=== PATIENT | male | born 1960 | race Caucasian/White ===

== ENCOUNTER 2018-12-01 08:55 | Day surgery (SDC) | payer OTHER ==
[~2018-12-01] VITALS: Ht 182.9 cm; Wt 142.9 kg
[~2018-12-01 08:55] MED LIST: ACTEMRA162 MG/0.9 SC; ADAL40PEN; AMOX875 PO; Amox Tr-K Clv1 EAC2 PO; CEPH500 PO; CHOL10002 PO; Depo-Testos200 MG/ML IM; FURO20 PO; Glucophage1000 MG PO; HYDACE10B; HYDCHL12.5 PO; HYDCHL25 PO; HYDHOMSY; HYDR1TAB94 PO; LEFL20 PO; LISHYD2025; METF500C PO; NAPR500 PO; Norco 7.5-3251 EACH PO; PRED10; PRED5 PO; Percocet 5-3251 EACH PO; TAMS.4ER PO; TESTONE CI200 MG/1 M IM; Veetids 500500 MG PO; XARELTO10 MG PO; ZESTORETIC 20-251 EA PO
--- NOTE | 2018-12-01 10:20 | NUR ---
History, Chart, Medications and Allergies reviewed before start of procedure. Lungs clear T/O to Auscultation. Patient confirms NPO status and agrees with scheduled surgery. Patient States Post-Procedure ride home has been arranged. Patient reports completing Chlorhexadine shower X2 prior to admission to hospital.
--- NOTE | 2018-12-01 11:45 | NUR ---
12/01/18 1145 Colin Nye ANCEF 3GMS ADMINESTERED AT 1108 IVPB, LEFT FOREARM, DR DEWITT
--- NOTE | 2018-12-01 13:36 | NUR ---
Discharge instructions reviewed with patient. Patient verbalizes understanding. Copy given to patient to take home. REPORT GIVEN TO JOE BAKER Y
--- NOTE | 2018-12-01 14:13 | NUR ---
Patient up to Ambulate independently. Gait steady. USES WALKER TO MOVE FROM SITTING AT EDGE OF GURNEY TO STANDING, KEEPS R LEG STRAIGHT. BEARS WT. TRANSFERS TO . OUT TO WAITING CAR. DOES NOT USE BACK SEAT OF VEHICLE FOR RIDE HOME ENCOURAGED BY RN AND FAMILY. ASSISTED TO STAND AND MOVE TO PASSENGER FRONT SEAT. Discharge instructions reviewed with patient. Patient verbalizes understanding. Copy given to patient to take home. Patient States Post-Procedure ride home has been arranged. Discharged via wheelchair to private car for ride home.
== END 2018-12-01 23:59 | disposition home or self-care (01) ==
LOC: ORSCMMR 08:55 → ORD 10:45 → ORSCMMR 23:59
PROVIDERS: Orthopaedic Surgery
PROC: 0LMQ0ZZ Reattachment of Right Knee Tendon, Open Approach (ICD-10-PCS; principal; 2018-12-01 10:45)
DX: T81.32XA Disruption of internal operation (surgical) wound, not elsewhere classified, initial encounter (principal); Z96.651 Presence of right artificial knee joint; I10 Essential (primary) hypertension; G47.33 Obstructive sleep apnea (adult) (pediatric); K21.9 Gastro-esophageal reflux disease without esophagitis; E11.9 Type 2 diabetes mellitus without complications; E66.01 Morbid (severe) obesity due to excess calories; Z68.41 Body mass index [BMI] 40.0-44.9, adult; Z79.4 Long term (current) use of insulin; Z79.899 Other long term (current) drug therapy
CPT/HCPCS: 82947; 87071; 87075; 87205; J0690; J2250; J2710; J3010; J7120

== ENCOUNTER → 2019-05-30 | Outpatient (CLI) | payer OTHER ==
[2019-05-30 09:21] LABS: BASOPHILS PERCENT AUTO 0 % (0-2); EOSINOPHILS ABSOLUTE AUTO 0.63 K/mm3 (0.00-0.68); EOSINOPHILS PERCENT AUTO 3 % (0-6); Hematocrit 42.2 % (37.0-53.0); Hemoglobin 14.5 g/dL (13.5-17.5); IMMATURE GRAN ABSOLUTE AUTO 0.12 K/mm3 (0.00-0.10); IMMATURE GRAN PERCENT AUTO 1 % (0-1); LYMPHOCYTES ABSOLUTE AUTO 1.67 K/mm3 (0.84-5.20); LYMPHOCYTES PERCENT AUTO 7 % (21-46); MONOCYTES ABSOLUTE AUTO 1.86 K/mm3 (0.16-1.47); MONOCYTES PERCENT AUTO 8 % (4-13); Mean Corpuscular HGB 32.2 pg (26.0-34.0); Mean Corpuscular HGB Conc 34.4 g/dL (31.5-36.5); Mean Corpuscular Volume 94 fL (80-100); NEUTROPHILS ABSOLUTE AUTO 19.47 K/mm3 (1.96-9.15); NEUTROPHILS PERCENT AUTO 82 % (41-73); Platelet Count 150 K/mm3 (150-400); RDW Coefficient Variation 14.1 % (11.7-14.2); RDW Standard Deviation 47.9 fL (35.1-46.3); White Blood Cell Count 23.85 K/mm3 (4.00-11.30)
[2019-05-30 09:37] LABS: Albumin, Blood 3.3 g/dL (3.4-5.0); Albumin/Globulin Ratio 1.2 (0.8-1.8); Bilirubin, Total 1.1 mg/dL (0.1-1.0); Bun/Creatinine Ratio 32.3 (12.0-20.0); Calcium, Blood 8.8 mg/dL (8.5-10.1); Creatinine, Blood 1.86 mg/dL (0.60-1.20); Globulin, Blood 2.8 g/dL (2.2-4.0); Potassium, Blood 4.1 mmol/L (3.5-5.5); Total Protein, Blood 6.1 g/dL (6.4-8.2)
[2019-05-30 11:16] LABS: Mean Platelet Volume 13.3 fL (9.1-12.4)
[2019-05-30 11:23] LABS: BAND PERCENT MAN 2 % (0-8); BASOPHILS ABSOLUTE MAN 0.23 K/mm3 (0.00-0.23); BASOPHILS PERCENT MAN 1 % (0-2); EOSINOPHILS ABSOLUTE MAN 0.71 K/mm3 (0.00-0.68); EOSINOPHILS PERCENT MAN 3 % (0-6); LYMPHOCYTES PERCENT MAN 8 % (21-46); MONOCYTES ABSOLUTE MAN 1.43 K/mm3 (0.16-1.47); MONOCYTES PERCENT MAN 6 % (4-13); NEUTROPHILS ABSOLUTE MAN 19.55 K/mm3 (1.96-9.15); SEG NEUTROPHILS PERCENT MAN 80 % (41-73); TOTAL CELLS COUNTED 100
== END | disposition home or self-care (01) ==
LOC: LAB EV 09:16 → LAB SHORT 09:16
PROVIDERS: Physician Assistant
DX: R19.7 Diarrhea, unspecified (principal)
CPT/HCPCS: 80053; 85025

== ENCOUNTER → 2019-05-31 | Outpatient (CLI) | payer OTHER ==
[2019-05-31 09:44] LABS: BASOPHILS ABSOLUTE AUTO 0.11 K/mm3 (0.00-0.23); BASOPHILS PERCENT AUTO 1 % (0-2); EOSINOPHILS ABSOLUTE AUTO 1.15 K/mm3 (0.00-0.68); EOSINOPHILS PERCENT AUTO 9 % (0-6); Hematocrit 41.5 % (37.0-53.0); Hemoglobin 14.2 g/dL (13.5-17.5); IMMATURE GRAN ABSOLUTE AUTO 0.04 K/mm3 (0.00-0.10); IMMATURE GRAN PERCENT AUTO 0 % (0-1); LYMPHOCYTES ABSOLUTE AUTO 1.31 K/mm3 (0.84-5.20); LYMPHOCYTES PERCENT AUTO 10 % (21-46); MONOCYTES ABSOLUTE AUTO 1.12 K/mm3 (0.16-1.47); MONOCYTES PERCENT AUTO 9 % (4-13); Mean Corpuscular HGB 32.2 pg (26.0-34.0); Mean Corpuscular HGB Conc 34.2 g/dL (31.5-36.5); Mean Corpuscular Volume 94 fL (80-100); NEUTROPHILS ABSOLUTE AUTO 9.25 K/mm3 (1.96-9.15); NEUTROPHILS PERCENT AUTO 71 % (41-73); Platelet Count 140 K/mm3 (150-400); RDW Coefficient Variation 13.6 % (11.7-14.2); RDW Standard Deviation 47.3 fL (35.1-46.3); Red Blood Cell Count 4.41 M/mm3 (4.30-5.90); White Blood Cell Count 12.98 K/mm3 (4.00-11.30)
[2019-05-31 09:45] LABS: Alanine Aminotransfer (ALT/SGP 39 U/L (12-78); Albumin, Blood 3.4 g/dL (3.4-5.0); Albumin/Globulin Ratio 1.1 (0.8-1.8); Alk Phos 76 U/L (40-126); Anion Gap 11 mmol/L (6-16); Aspartate Aminotrans (AST/SGOT 19 U/L (12-37); Bilirubin, Total 0.6 mg/dL (0.1-1.0); Blood Urea Nitrogen 30 mg/dL (8-24); Bun/Creatinine Ratio 26.5 (12.0-20.0); CO2, Blood 24 mmol/L (21-32); Calcium, Blood 9.1 mg/dL (8.5-10.1); Chloride, Blood 104 mmol/L (98-108); Creatinine, Blood 1.13 mg/dL (0.60-1.20); Glomerular Filtration Rate >60 (60-); Glucose, Blood 108 mg/dL (70-99); Potassium, Blood 4.1 mmol/L (3.5-5.5); Sodium, Blood 139 mmol/L (136-145); Total Protein, Blood 6.4 g/dL (6.4-8.2)
[2019-05-31 09:51] LABS: Mean Platelet Volume 13.8 fL (9.1-12.4)
== END | disposition home or self-care (01) ==
LOC: LAB SHORT 09:30 → LAB EV 09:30
PROVIDERS: Physician Assistant
DX: N17.9 Acute kidney failure, unspecified (principal)
CPT/HCPCS: 80053; 85025

== ENCOUNTER → 2019-06-14 | Outpatient (CLI) | payer OTHER | END | disposition home or self-care (01) | LOC: LAB SHORT 11:13 → LAB EV 11:13 | DX: G89.4 Chronic pain syndrome (principal) | CPT/HCPCS: G0480 ==

== ENCOUNTER → 2021-01-20 | Outpatient (CLI) | payer OTHER | END | disposition home or self-care (01) | LOC: LAB 09:10 → LAB SHORT 09:10 | DX: L57.0 Actinic keratosis (principal) | CPT/HCPCS: 88305; 88312 ==

== ENCOUNTER 2024-05-25 02:45 | Day surgery (SDC) | payer OTHER ==
[2024-05-25] MEDS ORDERED: NS IV SCH (06:00)
[2024-05-25] MEDS ORDERED: TOCILIZUMAB IV SCH (06:00)
[2024-05-25 09:33] VITALS: BP 135/82
[2024-05-25] MEDS ORDERED: Tocilizumab 800 MG in NS 60 ML IV SCH (09:55)
== END 2024-05-25 11:34 | disposition home or self-care (01) ==
LOC: ATC 02:45
DX: M05.79 Rheumatoid arthritis with rheumatoid factor of multiple sites without organ or systems involvement (principal); I12.9 Hypertensive chronic kidney disease with stage 1 through stage 4 chronic kidney disease, or unspecified chronic kidney disease; E11.22 Type 2 diabetes mellitus with diabetic chronic kidney disease; N18.30 Chronic kidney disease, stage 3 unspecified; E78.5 Hyperlipidemia, unspecified; Z88.1 Allergy status to other antibiotic agents; Z79.84 Long term (current) use of oral hypoglycemic drugs; Z79.899 Other long term (current) drug therapy
CPT/HCPCS: 96365; 96366; J3262

== ENCOUNTER 2024-07-26 00:54 | Day surgery (SDC) | payer OTHER ==
[2024-07-26 08:00] VITALS: BP 153/82
[2024-07-26] MEDS ORDERED: Tocilizumab 800 MG in NS 60 ML IV SCH (08:15)
== END 2024-07-26 09:24 | disposition home or self-care (01) ==
LOC: ATC 00:54
DX: M05.79 Rheumatoid arthritis with rheumatoid factor of multiple sites without organ or systems involvement (principal); E11.9 Type 2 diabetes mellitus without complications; E11.22 Type 2 diabetes mellitus with diabetic chronic kidney disease; I12.9 Hypertensive chronic kidney disease with stage 1 through stage 4 chronic kidney disease, or unspecified chronic kidney disease; N18.30 Chronic kidney disease, stage 3 unspecified; Z79.84 Long term (current) use of oral hypoglycemic drugs; Z79.899 Other long term (current) drug therapy; Z88.8 Allergy status to other drugs, medicaments and biological substances
CPT/HCPCS: 96365; J3262

== ENCOUNTER 2024-08-23 04:45 | Day surgery (SDC) | payer OTHER ==
[2024-08-23] MEDS ORDERED: Tocilizumab 800 MG in NS 60 ML IV SCH (06:00)
[2024-08-23 08:18] VITALS: BP 170/100
[2024-08-23 08:59] LABS: BASOPHILS ABSOLUTE AUTO 0.19 K/mm3 (0.00-0.23); BASOPHILS PERCENT AUTO 2 % (0-2); EOSINOPHILS ABSOLUTE AUTO 0.92 K/mm3 (0.00-0.68); EOSINOPHILS PERCENT AUTO 10 % (0-6); Hematocrit 48.8 % (37.0-53.0); Hemoglobin 16.5 g/dL (13.5-17.5); IMMATURE GRAN ABSOLUTE AUTO 0.04 K/mm3 (0.00-0.10); IMMATURE GRAN PERCENT AUTO 0 % (0-1); LYMPHOCYTES ABSOLUTE AUTO 1.68 K/mm3 (0.84-5.20); LYMPHOCYTES PERCENT AUTO 17 % (21-46); MONOCYTES ABSOLUTE AUTO 0.99 K/mm3 (0.16-1.47); MONOCYTES PERCENT AUTO 10 % (4-13); Mean Corpuscular HGB 31.1 pg (26.0-34.0); Mean Corpuscular HGB Conc 33.8 g/dL (31.5-36.5); Mean Corpuscular Volume 92 fL (80-100); NEUTROPHILS ABSOLUTE AUTO 5.85 K/mm3 (1.96-9.15); NEUTROPHILS PERCENT AUTO 61 % (41-73); Platelet Count 177 K/mm3 (150-400); RDW Coefficient Variation 13.2 % (11.7-14.2); RDW Standard Deviation 45.6 fL (35.1-46.3); Red Blood Cell Count 5.31 M/mm3 (4.30-5.90); White Blood Cell Count 9.67 K/mm3 (4.00-11.30)
[2024-08-23 09:20] LABS: Mean Platelet Volume 13.6 fL (9.1-12.4)
[2024-08-23 09:22] LABS: C-REACTIVE PROTEIN, EXT RANGE <0.290 mg/dL (0.000-0.300)
[2024-08-23 09:23] LABS: Alanine Aminotransfer (ALT/SGP 65 U/L (12-78); Albumin, Blood 3.4 g/dL (3.4-5.0); Albumin/Globulin Ratio 1.2 (0.8-1.8); Alk Phos 70 U/L (50-136); Anion Gap 6 mmol/L (3-11); Aspartate Aminotrans (AST/SGOT 34 U/L (12-37); Blood Urea Nitrogen 26 mg/dL (8-24); Bun/Creatinine Ratio 31.4 (12.0-20.0); CO2, Blood 27 mmol/L (21-32); Chloride, Blood 109 mmol/L (98-108); Creatinine, Blood 0.83 mg/dL (0.60-1.20); Globulin, Blood 2.9 g/dL (2.2-4.0); Glomerular Filtration Rate 97 (60-); Glucose, Blood 109 mg/dL (70-99); Potassium, Blood 4.1 mmol/L (3.5-5.5); Sodium, Blood 138 mmol/L (136-145); Total Protein, Blood 6.3 g/dL (6.4-8.2)
== END 2024-08-23 10:00 | disposition home or self-care (01) ==
LOC: ATC 04:45
PROVIDERS: Internal Medicine Rheumatology
DX: M05.79 Rheumatoid arthritis with rheumatoid factor of multiple sites without organ or systems involvement (principal); I12.9 Hypertensive chronic kidney disease with stage 1 through stage 4 chronic kidney disease, or unspecified chronic kidney disease; E11.22 Type 2 diabetes mellitus with diabetic chronic kidney disease; N18.30 Chronic kidney disease, stage 3 unspecified; E78.5 Hyperlipidemia, unspecified; N40.0 Benign prostatic hyperplasia without lower urinary tract symptoms; G89.4 Chronic pain syndrome; F17.220 Nicotine dependence, chewing tobacco, uncomplicated; Z79.1 Long term (current) use of non-steroidal anti-inflammatories (NSAID); Z79.84 Long term (current) use of oral hypoglycemic drugs; Z79.899 Other long term (current) drug therapy; Z88.1 Allergy status to other antibiotic agents
CPT/HCPCS: 80053; 85025; 86140; 96365; J3262

== ENCOUNTER → 2024-09-04 | Outpatient (CLI) | payer OTHER ==
[~2024-09-04] MED LIST changes: +ACTEMRA162 MG/0.1 SC; -ACTEMRA162 MG/0.9 SC
[2024-09-05 17:42] LABS: COTININE, URN, SCREEN Negative ng/mL (Cutoff 100)
== END | disposition home or self-care (01) ==
LOC: LAB 11:34 → LAB SHORT 11:34
PROVIDERS: Orthopaedic Surgery
DX: Z01.812 Encounter for preprocedural laboratory examination (principal); Z87.891 Personal history of nicotine dependence

== ENCOUNTER 2024-10-17 04:09 | Day surgery (SDC) | payer OTHER ==
[~2024-10-17 04:09] MED LIST changes: +DEPO-TESTO200 MG/1 M IM; -Depo-Testos200 MG/ML IM; +HYDACE10B PO
[2024-10-17] MEDS ORDERED: Tocilizumab 800 MG in NS 60 ML IV SCH (06:00)
[2024-10-17 08:00] VITALS: BP 159/95
== END 2024-10-17 09:34 | disposition home or self-care (01) ==
LOC: ATC 04:09
DX: M05.79 Rheumatoid arthritis with rheumatoid factor of multiple sites without organ or systems involvement (principal); M17.12 Unilateral primary osteoarthritis, left knee; E11.9 Type 2 diabetes mellitus without complications; Z88.8 Allergy status to other drugs, medicaments and biological substances; Z79.899 Other long term (current) drug therapy
CPT/HCPCS: 96365; J3262

== ENCOUNTER 2024-10-28 08:09 | Inpatient (IN) | payer OTHER ==
[~2024-10-28] VITALS: Ht 180.3 cm; Wt 133.1 kg
[2024-10-28 10:02] LABS: BASOPHILS ABSOLUTE AUTO 0.21 K/mm3 (0.00-0.23); BASOPHILS PERCENT AUTO 1 % (0-2); EOSINOPHILS ABSOLUTE AUTO 0.37 K/mm3 (0.00-0.68); EOSINOPHILS PERCENT AUTO 1 % (0-6); Hematocrit 45.2 % (37.0-53.0); Hemoglobin 14.9 g/dL (13.5-17.5); IMMATURE GRAN ABSOLUTE AUTO 0.25 K/mm3 (0.00-0.10); IMMATURE GRAN PERCENT AUTO 1 % (0-1); LYMPHOCYTES ABSOLUTE AUTO 0.64 K/mm3 (0.84-5.20); LYMPHOCYTES PERCENT AUTO 2 % (21-46); MONOCYTES ABSOLUTE AUTO 1.56 K/mm3 (0.16-1.47); MONOCYTES PERCENT AUTO 5 % (4-13); Mean Corpuscular Volume 94 fL (80-100); Mean Platelet Volume 12.8 fL (9.1-12.4); NEUTROPHILS ABSOLUTE AUTO 27.27 K/mm3 (1.96-9.15); NEUTROPHILS PERCENT AUTO 90 % (41-73); Platelet Count 204 K/mm3 (150-400); RDW Coefficient Variation 13.3 % (11.7-14.2); RDW Standard Deviation 45.7 fL (35.1-46.3)
[2024-10-28 10:13] LABS: C-REACTIVE PROTEIN, EXT RANGE 7.24 mg/dL (0.000-0.300)
[2024-10-28 10:14] LABS: Albumin, Blood 3.5 g/dL (3.4-5.0); Albumin/Globulin Ratio 1.1 (0.8-1.8); Bilirubin, Total 0.9 mg/dL (0.1-1.0); Bun/Creatinine Ratio 22.8 (12.0-20.0); Calcium, Blood 9.4 mg/dL (8.5-10.1); Creatinine, Blood 1.23 mg/dL (0.60-1.20); Globulin, Blood 3.2 g/dL (2.2-4.0); Potassium, Blood 4.2 mmol/L (3.5-5.5); Total Protein, Blood 6.7 g/dL (6.4-8.2)
[2024-10-28] MEDS ORDERED: Ketorolac Tromethamine 15mg Vial IV ONE (11:45)
[2024-10-28] MEDS ORDERED: NS 1,000 ML IV SCH (11:50)
[2024-10-28] MEDS ORDERED: Cefepime HCl 2,000 MG in NS 100 ML IV ONE (12:40)
[2024-10-28] MEDS ORDERED: Vancomycin HCL 2,500 MG in NS 500 ML IV ONE ×2 (12:45→14:35)
[2024-10-28] MEDS ORDERED: Piperacillin/Tazobactam Sod 3.375 GM in NS 100 ML IV ONE (14:10)
[2024-10-28] MEDS ORDERED: TraZODone HCl 50 MG Tab PO PRN (14:20)
[2024-10-28] MEDS ORDERED: Bisacodyl 10 MG Supp PR PRN (14:20)
[2024-10-28] MEDS ORDERED: OxyCODONE HCL 5 MG TAB PO PRN (14:25)
[2024-10-28] MEDS ORDERED: Magnesium Hydroxide Conc 10 ML UDC PO PRN (14:25)
[2024-10-28] MEDS ORDERED: Ondansetron HCl 2 MG / ML 2ML Vial IV PRN (14:25)
[2024-10-28] MEDS ORDERED: HYDROmorphone HCl/Pf 1MG SYR IV PRN (14:25)
[2024-10-28] MEDS ORDERED: Acetaminophen 325 MG TABLET PO PRN (14:25)
[2024-10-28] MEDS ORDERED: Ondansetron 4 MG TAB PO PRN (14:25)
[2024-10-28] MEDS ORDERED: Metoclopramide HCl 5MG / ML 2ML Vial IV PRN (14:25)
[2024-10-28] MEDS ORDERED: FLU VACC TS2024-25(6MOS UP)/PF 45 MCG/0.5 ML SYRINGE IM SCH (14:30)
[2024-10-28] MEDS ORDERED: Piperacillin/Tazobactam Sod 4.5 GM in NS 100 ML IV SCH (16:00)
[2024-10-28 16:37] LABS: BODY FLUID RBC 0.043 M/mm3 (0-0)
[2024-10-28 16:47] LABS: RBC Count, Synovial Fluid 43000 /mm3 (0-0); WBC Count, Synovial Fluid >200000 /mm3 (0-180)
[2024-10-28 16:48] LABS: Appearance, Synovial Fluid Turbid (Clear); Color, Synovial Fluid Dark Yellow (None-P Yel)
[2024-10-28 16:51] VITALS: BP 115/69
[2024-10-28] MEDS ORDERED: NAPR500 PO (16:57)
[2024-10-28] MEDS ORDERED: Diflucan150 MG PO (16:57)
[2024-10-28 17:36] LABS: Lymphs, Synovial Fluid 1 % (0-15); Monocytes/Macrophages, Synovia 5 % (0-65); Neutrophils, Synovial Fluid 94 % (0-24)
--- NOTE | 2024-10-28 18:24 | NUR ---
SHIFT SUMMARY/ARRIVAL TO UNIT AFTER RECEIVING REPORT FROM ED RN, PATIENT TRANSFERRED TO UNIT AT APPROX 1645. PATIENT ALERT AND ORIENTED X4. COMMUNICATES NEEDS EFFECTIVELY. ABLE TO STAND AND TRANSFER FROM ED GURNEY TO BED WITH 1P ASSIST. VSS. ON ROOM AIR, SATs >90%. RR EVEN, UNLABORED. MILD SHORTNESS OF BREATH WITH MOBILITY. NPO AT MIDNIGHT FOR LLE PROCEDURE. REDNESS FROM FOOT EXTENDING TO CALF. +3 SWELLING. WARM TO TOUCH. PPP FAINT/THREADY. SMALL BANDAID IN PLACE FROM BEDSIDE ARTHROCENTESIS PRIOR TO ARRIVAL. MEDICATED PER EMAR FOR PAIN WITH REPORTED RELIEF. IV ABX INFUSING PER EMAR. CALL LIGHT IN REACH. AT BEDSIDE. WILL CONTINUE TO MONITOR AND REPORT TO ONCOMING RN.
[2024-10-28 20:33] VITALS: BP 135/77
[2024-10-28] MEDS ORDERED: NS 250 ML IV PRN (20:55)
[2024-10-28] MEDS ORDERED: Insulin Human Lispro 100 Units/ML 3ML Syringe SC SCH (21:00)
[2024-10-29] VITALS (21 sets, daily range): BP systolic 86–138; BP diastolic 52–91
--- NOTE | 2024-10-29 05:12 | NUR ---
SHIFT SUMMARY PT ABLE TO SLEEP DURING THE NIGHT. PAIN MANAGED PER EMAR. PT MADE NPO AT [place] FOR SURGERY THIS AM. PT HAS EDEMA TO LLE, PULSES STRONG TO LE'S. VSS. NO OTHER CONCERNS AT THIS TIME, CALL LIGHT WITHIN REACH
[2024-10-29] MEDS ORDERED: CeFAZolin Sodium 2,000 MG in NS 100 ML IV SCH (06:00)
[2024-10-29] MEDS ORDERED: Ropivacaine 0.5% HCl/Pf 123.125 MG,EPINEPHrine HCL 0.25 MG,Ketorolac Tromethamine 15 MG... INFIL SCH (06:00)
[2024-10-29] MEDS ORDERED: Vancomycin HCL 1,000 MG in NS 250 ML IV SCH ×2 (06:00→21:00)
[2024-10-29] MEDS ORDERED: Tranexamic Acid 1,000 MG in NS 100 ML IV SCH (06:00)
[2024-10-29] MEDS ORDERED: Insulin Human Lispro 100 Units/ML 3ML Syringe SC SCH ×2 (06:00→21:00)
[2024-10-29 06:15] LABS: BASOPHILS ABSOLUTE AUTO 0.19 K/mm3 (0.00-0.23); BASOPHILS PERCENT AUTO 1 % (0-2); EOSINOPHILS PERCENT AUTO 6 % (0-6); Hematocrit 39.5 % (37.0-53.0); Hemoglobin 12.9 g/dL (13.5-17.5); IMMATURE GRAN ABSOLUTE AUTO 0.19 K/mm3 (0.00-0.10); IMMATURE GRAN PERCENT AUTO 1 % (0-1); LYMPHOCYTES ABSOLUTE AUTO 0.85 K/mm3 (0.84-5.20); LYMPHOCYTES PERCENT AUTO 4 % (21-46); MONOCYTES ABSOLUTE AUTO 1.57 K/mm3 (0.16-1.47); MONOCYTES PERCENT AUTO 7 % (4-13); Mean Corpuscular HGB 31.1 pg (26.0-34.0); Mean Corpuscular HGB Conc 32.7 g/dL (31.5-36.5); Mean Corpuscular Volume 95 fL (80-100); Mean Platelet Volume 12.9 fL (9.1-12.4); NEUTROPHILS PERCENT AUTO 82 % (41-73); Platelet Count 163 K/mm3 (150-400); RDW Coefficient Variation 13.6 % (11.7-14.2); RDW Standard Deviation 47.6 fL (35.1-46.3); Red Blood Cell Count 4.15 M/mm3 (4.30-5.90)
[2024-10-29 06:56] LABS: Albumin, Blood 2.8 g/dL (3.4-5.0); Bilirubin, Total 0.9 mg/dL (0.1-1.0); Bun/Creatinine Ratio 32.2 (12.0-20.0); Creatinine, Blood 0.99 mg/dL (0.60-1.20); Globulin, Blood 2.9 g/dL (2.2-4.0); Total Protein, Blood 5.7 g/dL (6.4-8.2)
[2024-10-29] MEDS ORDERED: Lactated Ringer's 1,000 ML IV ONE (08:41)
[2024-10-29] MEDS ORDERED: Bupivacaine 0.5% HCl 5 MG/ML 30MLVIAL ONE (08:47)
[2024-10-29] MEDS ORDERED: Vancomycin HCl 1000 MG ADDvantage ONE (08:47)
[2024-10-29] MEDS ORDERED: Tranexamic Acid 100 ML IV ONE (08:47)
[2024-10-29] MEDS ORDERED: HydroCHLOROthiazide 25 mg Tab PO SCH (09:00)
[2024-10-29] MEDS ORDERED: Heparin Sodium 5000 Units/ML 1ML MDV SC SCH (09:00)
[2024-10-29] MEDS ORDERED: Lisinopril 20 MG Tab PO SCH (09:00)
[2024-10-29] MEDS ORDERED: Tamsulosin HCl 0.4 MG Cap PO SCH (09:00)
[2024-10-29] MEDS ORDERED: propofoL 20 ML IV ONE (09:27)
--- NOTE | 2024-10-29 09:27 | NUR ---
PT ARRIVES TO PACU VIA BED FROM RM 227 AT 0915 FOR PREOP CARE. PLEASANT & COOPERATIVE. DENIES PAIN/NAUSEA. AFEBRILE/VSS. SURGICAL PACK COMPLETE. LR AT TKO INFUSING. SURGICAL HAT/PAS SLEEVE TO RLE/BP CUFF PLACED. NO COMPLANTS.
[2024-10-29] MEDS ORDERED: FentaNYL Citrate 50 MCG/ML 2 ML Injection ONE ×2 (09:28→09:53)
--- NOTE | 2024-10-29 09:31 | NUR ---
PT TO OR 4 VIA BED AT 0930 IN STABLE CONDITION.
[2024-10-29] MEDS ORDERED: Phenylephrine HCl 10mg/ml 1 ml Vial ONE (09:35)
[2024-10-29] MEDS ORDERED: Ondansetron HCl 2 MG / ML 2ML Vial ONE (09:39)
[2024-10-29] MEDS ORDERED: Dexamethasone Sod Phos 10 MG/ML 1ML VIAL ONE (09:39)
[2024-10-29] MEDS ORDERED: HYDROmorphone HCl/Pf 1MG SYR ONE ×2 (12:08→12:45)
[2024-10-29] MEDS ORDERED: Ipratropium/Albuterol SulF 2.5-0.5MG/3 ML Amp ONE (12:17)
[2024-10-29] MEDS ORDERED: Naloxone HCl 0.4MG / ML 1ML Vial IV PRN (12:30)
[2024-10-29] MEDS ORDERED: OxyCODONE HCL 5 MG TAB PO PRN (12:30)
[2024-10-29] MEDS ORDERED: Bisacodyl 10 MG Supp PR PRN (12:30)
[2024-10-29] MEDS ORDERED: Ondansetron 4 MG TAB PO PRN (12:30)
[2024-10-29] MEDS ORDERED: Acetaminophen 325 MG TABLET PO PRN (12:30)
[2024-10-29] MEDS ORDERED: Ondansetron HCl 2 MG / ML 2ML Vial IV PRN (12:30)
[2024-10-29] MEDS ORDERED: HYDROmorphone HCl/Pf 1MG SYR IV PRN (12:35)
[2024-10-29] MEDS ORDERED: Metoclopramide HCl 10 MG Tab PO PRN (12:35)
[2024-10-29] MEDS ORDERED: NS KCl 20mEq 1,000 ML IV SCH (12:35)
[2024-10-29] MEDS ORDERED: Magnesium Hydroxide Conc 10 ML UDC PO PRN (12:35)
[2024-10-29] MEDS ORDERED: Ketorolac Tromethamine 15mg Vial IV PRN (12:45)
--- NOTE | 2024-10-29 16:48 | NUR ---
spoke with dr. maurer about low blood pressures. orders to give 500 ml bolus and dc any antihypertensive meds at this time. if bp does not improve call dr. maurer back.
[2024-10-29] MEDS ORDERED: NS 500 ML IV ONE (16:55)
[2024-10-29] MEDS ORDERED: CeFAZolin Sodium 3,000 MG in NS 100 ML IV SCH (17:30)
--- NOTE | 2024-10-29 19:40 | NUR ---
SHIFT SUMMARY POD0 L KNEE I&D WITH HARDWARE REMOVAL, A/OX4, VSS, TOLERATING PO, PAIN MANAGED, NWB LLE AND HE HAS NOT TRIED TO GET UP SINCE SURGERY. HEMOVAC IN PLACE WITH 60ML DRAINED THIS SHIFT. PT WAS VERY PAINFUL WHEN HE CAME OUT FROM PACU, GAVE PO AND IV TORADOL DUE TO IV NARCOTICS BEING GIVEN SO RECENTLY IN PACU. WAITED ABOUT 45 MINUTES AND HE WAS STILL REPORTING HIGH PAIN LEVELS. AT THAT TIME HE WAS DOWN TO RA WITH SATS > 96%. GAVE 1MG DILAUDID PER EMAR AND HE HAD BECAME DROWSY AFTER ABOUT 10-15 MINUTES BUT WOKE EASILY WITH THE AMBIENT NOISE IN THE ROOM AND FAMILY ASKING QUESTIONS. BP BECAME SOFT WITH ELEVATED HR WHICH WAS DISCUSSED WITH MD (SEE NURSE NOTES). SMALL BOLUS ORDERED AND GIVEN PER EMAR, PT BP REMAINS SOFT BUT RESPONSIVE, REPORTING PAIN AGAIN AND ASKING FOR MORE PAIN MEDS WHEN DOING BEDSIDE SHIFT REPORT. CALL LIGHT IN REACH.
--- NOTE | 2024-10-29 19:46 | NUR ---
FAMILY COMMUNICATION FAMILY, AND DAUGHTER, REQUESTED FOR SURGEON TO CALL AND UPDATE THEM ON PATIENTS CARE IF THEY ARE NOT HERE WHEN THE SURGEON ROUNDS. NAMED YAEL HEARN, DAUGHTER RAJESH.
[2024-10-29] MEDS ORDERED: Docusate Sodium 100 MG Cap PO SCH (21:00)
[2024-10-30 03:41] VITALS: BP 101/56
[2024-10-30 05:32] LABS: BASOPHILS ABSOLUTE AUTO 0.04 K/mm3 (0.00-0.23); BASOPHILS PERCENT AUTO 0 % (0-2); EOSINOPHILS PERCENT AUTO 0 % (0-6); Hematocrit 33.9 % (37.0-53.0); Hemoglobin 11.2 g/dL (13.5-17.5); IMMATURE GRAN ABSOLUTE AUTO 0.45 K/mm3 (0.00-0.10); IMMATURE GRAN PERCENT AUTO 2 % (0-1); LYMPHOCYTES ABSOLUTE AUTO 0.56 K/mm3 (0.84-5.20); LYMPHOCYTES PERCENT AUTO 3 % (21-46); MONOCYTES PERCENT AUTO 7 % (4-13); Mean Corpuscular HGB 31.8 pg (26.0-34.0); Mean Corpuscular Volume 96 fL (80-100); Mean Platelet Volume 12.5 fL (9.1-12.4); NEUTROPHILS ABSOLUTE AUTO 19.47 K/mm3 (1.96-9.15); NEUTROPHILS PERCENT AUTO 89 % (41-73); Platelet Count 150 K/mm3 (150-400); RDW Coefficient Variation 13.8 % (11.7-14.2); RDW Standard Deviation 48.6 fL (35.1-46.3); Red Blood Cell Count 3.52 M/mm3 (4.30-5.90); White Blood Cell Count 22.02 K/mm3 (4.00-11.30)
--- NOTE | 2024-10-30 06:07 | NUR ---
POD 1 S/P LEFT I&D/HARDWARE REMOVAL. PT VSS T/O NIGHT. DRESSING CDI. HEMOVAC INTACT W/200ML DARK SS DRNG. PAIN MGD PER EMAR W/REP RELIEF. PT AMADA REG PO, DENIED N/V, IS VOIDING URINE W/O DIFFICULTY. PT ASSISTED W/REPOSITIONING PRN, KNEE IMMOBILIZER IN PLACE. IV ABX CONT PER ORDERS.
[2024-10-30 06:18] LABS: Bun/Creatinine Ratio 24.2 (12.0-20.0); C-REACTIVE PROTEIN, EXT RANGE 5.81 mg/dL (0.000-0.300); Calcium, Blood 8.6 mg/dL (8.5-10.1); Creatinine, Blood 1.28 mg/dL (0.60-1.20); Magnesium, Blood 2.2 mg/dL (1.6-2.4); Potassium, Blood 3.8 mmol/L (3.5-5.5)
[2024-10-30 07:20] VITALS: BP 132/67
[2024-10-30] MEDS ORDERED: Enoxaparin 40 MG/0.4 ML SYR SC SCH (09:00)
--- NOTE | 2024-10-30 12:48 | NUR ---
DR BENNETT IN TO SEE PT.
--- NOTE | 2024-10-30 14:16 | NUR ---
HEMOVAC HEMOVAC CLIP CAME OFF AND HEMOVAC FELL OFF TUBING AND LANDED ON FLOOR. CLAMPED TUBING AND PLACED END OF TUBING IN BAG TO KEEP CLEAN. NOTIFIED DR BENNETT. CLEANED TUBING WITH ALCOHOL AND PLACED NEW HEMOVAC PER DR MILLER'S INSTRUCTION. HEMOVAC COMPRESSED.
[2024-10-30 15:57] VITALS: BP 138/71
--- NOTE | 2024-10-30 17:26 | NUR ---
summary NO ACUTE CHANGES T/O SHIFT. PT PAINFUL OFF AND ON T/O DAY, MEDICATED PER ORDERS FOR PAIN. GOT UP TO RECLINER WITH THERAPY AND BSC W/RN & PEELED POTATO INSPECTOR. TWO PERSON ASSIST. IMMOBILIZER IN PLACE, HEMOVAC COMPRESSED. FAMILY BEDSIDE. CALL LIGHT IN REACH.
[2024-10-30 19:22] VITALS: BP 134/72
[2024-10-30] MEDS ORDERED: Baclofen 10 MG Tab PO PRN (20:35)
[2024-10-30 20:51] LABS: Vancomycin, Trough 10.2 ug/mL (5.0-10.0)
[2024-10-30] MEDS ORDERED: Vancomycin HCL 1,750 MG in NS 500 ML IV SCH (22:00)
[2024-10-30 23:59] VITALS: BP 143/79
--- NOTE | 2024-10-31 01:04 | NUR ---
PHARMACIST SAMUEL REVIEWED PT LABS AND MEDS,HE CONFIRMED OK TO GIVE TORADOL.
[2024-10-31 03:59] VITALS: BP 150/76
[2024-10-31 04:22] LABS: BASOPHILS ABSOLUTE AUTO 0.19 K/mm3 (0.00-0.23); BASOPHILS PERCENT AUTO 1 % (0-2); EOSINOPHILS ABSOLUTE AUTO 0.31 K/mm3 (0.00-0.68); EOSINOPHILS PERCENT AUTO 2 % (0-6); Hematocrit 37.9 % (37.0-53.0); Hemoglobin 12.1 g/dL (13.5-17.5); IMMATURE GRAN PERCENT AUTO 1 % (0-1); LYMPHOCYTES ABSOLUTE AUTO 1.52 K/mm3 (0.84-5.20); LYMPHOCYTES PERCENT AUTO 9 % (21-46); MONOCYTES ABSOLUTE AUTO 1.45 K/mm3 (0.16-1.47); MONOCYTES PERCENT AUTO 9 % (4-13); Mean Corpuscular HGB 30.8 pg (26.0-34.0); Mean Corpuscular HGB Conc 31.9 g/dL (31.5-36.5); Mean Corpuscular Volume 96 fL (80-100); Mean Platelet Volume 12.5 fL (9.1-12.4); NEUTROPHILS PERCENT AUTO 79 % (41-73); Platelet Count 171 K/mm3 (150-400); RDW Coefficient Variation 13.7 % (11.7-14.2); RDW Standard Deviation 48.6 fL (35.1-46.3); Red Blood Cell Count 3.93 M/mm3 (4.30-5.90); White Blood Cell Count 16.77 K/mm3 (4.00-11.30)
[2024-10-31 04:45] LABS: Albumin, Blood 2.6 g/dL (3.4-5.0); Albumin/Globulin Ratio 0.9 (0.8-1.8); Bilirubin, Total 0.4 mg/dL (0.1-1.0); Bun/Creatinine Ratio 27.4 (12.0-20.0); Calcium, Blood 8.9 mg/dL (8.5-10.1); Creatinine, Blood 0.99 mg/dL (0.60-1.20); Potassium, Blood 4.1 mmol/L (3.5-5.5); Total Protein, Blood 5.6 g/dL (6.4-8.2)
[2024-10-31 07:33] VITALS: BP 147/81
--- NOTE | 2024-10-31 07:44 | NUR ---
SUMMARY PT AWAKE AND ORIENTED. PT REPORTED MUSCLE SPASMS TONIGHT ANAD I OBTAINED ORDER FOR BACLOFEN WHICH WAS GIVEN X1.THIS AM DURING SHIFT REPORT, PT VERB PLEASED WITH BACLOFEN AND FELT IT WAS QUITE HELPFUL.
[2024-10-31] MEDS ORDERED: MetFORMIN HCl 500 mg PO SCH (08:00)
[2024-10-31] MEDS ORDERED: HydroCHLOROthiazide 25 mg Tab PO SCH (09:00)
[2024-10-31 16:05] VITALS: BP 105/78
--- NOTE | 2024-10-31 16:18 | NUR ---
STEPHANIE ARMSTRONG IN TO SEE PT.
--- NOTE | 2024-10-31 17:47 | NUR ---
SUMMARY NO ACUTE CHANGES T/O SHIFT. PT GOT UP TO RECLINER THIS AM. DOES NOT LIKE RECLINER. EDUCATED PT AND FAMILY ON IMPORTANCE FOR OVERALL HEALTH TO BE OUT OF BED. PT STATES WOULD RATHER SIT ON EDGE OF BED. DRESSING TO LLE CDI. EMPTIED 100 ML FROM HEMOVAC. COMPRESSED. REC'G IV ABX PER ORDERS. MEDICATED PER ORDERS DURING SHIFT FOR PAIN AND SPASMS. PT GOT UP TO BSC TWICE TODAY, HAVING SOFT, UNFORMED BMS. RESTING IN BED AT THIS TIME, CALL LIGHT IN REACH.
[2024-10-31 19:44] VITALS: BP 147/77
[2024-10-31] MEDS ORDERED: Arginine/Glutamine/Calcium Hmb 1 Packet PO SCH (21:00)
[2024-11-01 05:01] VITALS: BP 154/89
[2024-11-01 05:44] LABS: BASOPHILS ABSOLUTE AUTO 0.17 K/mm3 (0.00-0.23); BASOPHILS PERCENT AUTO 2 % (0-2); EOSINOPHILS ABSOLUTE AUTO 0.93 K/mm3 (0.00-0.68); EOSINOPHILS PERCENT AUTO 8 % (0-6); Hematocrit 37.1 % (37.0-53.0); IMMATURE GRAN ABSOLUTE AUTO 0.08 K/mm3 (0.00-0.10); IMMATURE GRAN PERCENT AUTO 1 % (0-1); LYMPHOCYTES ABSOLUTE AUTO 1.78 K/mm3 (0.84-5.20); LYMPHOCYTES PERCENT AUTO 16 % (21-46); MONOCYTES ABSOLUTE AUTO 1.56 K/mm3 (0.16-1.47); MONOCYTES PERCENT AUTO 14 % (4-13); Mean Corpuscular HGB 30.8 pg (26.0-34.0); Mean Corpuscular HGB Conc 32.3 g/dL (31.5-36.5); Mean Corpuscular Volume 95 fL (80-100); Mean Platelet Volume 12.6 fL (9.1-12.4); NEUTROPHILS ABSOLUTE AUTO 6.55 K/mm3 (1.96-9.15); NEUTROPHILS PERCENT AUTO 59 % (41-73); Platelet Count 181 K/mm3 (150-400); RDW Coefficient Variation 13.5 % (11.7-14.2); RDW Standard Deviation 47.3 fL (35.1-46.3); Red Blood Cell Count 3.89 M/mm3 (4.30-5.90); White Blood Cell Count 11.07 K/mm3 (4.00-11.30)
[2024-11-01 06:20] LABS: Albumin, Blood 2.4 g/dL (3.4-5.0); Albumin/Globulin Ratio 0.8 (0.8-1.8); Bilirubin, Total 0.4 mg/dL (0.1-1.0); Bun/Creatinine Ratio 29.4 (12.0-20.0); Calcium, Blood 8.9 mg/dL (8.5-10.1); Creatinine, Blood 0.82 mg/dL (0.60-1.20); Globulin, Blood 2.9 g/dL (2.2-4.0); Potassium, Blood 3.9 mmol/L (3.5-5.5); Total Protein, Blood 5.3 g/dL (6.4-8.2)
[2024-11-01 07:31] VITALS: BP 152/73
--- NOTE | 2024-11-01 07:38 | NUR ---
SHIFT SUMMARY NOC. PT POD 3 FOR I&D AND HARDWARE REMOVAL. PT A/O X4. PT NWB ON LLE, IMMOBILIZER AND HEMOVAC IN PLACE. PT MEDICATED FOR PAIN WITH REPORTED RELIEF. PT VOIDING URINE AND TOLERATING PO INTAKE. MAKES NEEDS KNOWN, CALL LIGHT IN REACH.
[2024-11-01 14:08] VITALS: BP 145/68
--- NOTE | 2024-11-01 16:35 | NUR ---
SUMMARY: PT IS POD3 L I&D. A/O, VSS. SURGICAL SITE WNL, BRACE IN PLACE. SMALL AMT OF OUTPUT FROM HEMOVAC. PT MEDICATED FOR PAIN/SPASMS PER EMAR. PT REFUSED THERAPY TODAY, DID SIT AT EDGE OF BED TONIGHT FOR BEDBATH. NO ACUTE CHANGE, PLAN IS NPO AT 0000. PER DR. MO OK TO PLACE PICC LINE TOMORROW. PT USES CALL LIGHT AND MAKES NEEDS KNOWN.
--- NOTE | 2024-11-01 18:52 | NUR ---
DR. BENNETT IN ROOM AT ABOUT 1800.
[2024-11-01 19:29] VITALS: BP 154/82
[2024-11-02] VITALS (15 sets, daily range): BP systolic 99–168; BP diastolic 49–88
--- NOTE | 2024-11-02 04:37 | NUR ---
SHIFT SUMMARY POD 4 L KNEE I&D AND HARDWARE REMOVAL PT ABLE TO REST DURING THE NIGHT. PAIN MANAGED PER EMAR. PT CURRENTLY ON CL, WILL BECOME NPO AT NOON FOR SURGERY TODAY. [place] AND IMMOBILIZER TO L KNEE IS C/D/I. HEMO VAC HAS MINIMAL SS OUTPUT. VSS. NO OTHER CONCERNS AT THIS TIME, CALL LIGHT WITHIN REACH
[2024-11-02 05:03] LABS: BASOPHILS ABSOLUTE AUTO 0.14 K/mm3 (0.00-0.23); BASOPHILS PERCENT AUTO 1 % (0-2); EOSINOPHILS ABSOLUTE AUTO 0.92 K/mm3 (0.00-0.68); EOSINOPHILS PERCENT AUTO 9 % (0-6); Hemoglobin 12.4 g/dL (13.5-17.5); IMMATURE GRAN ABSOLUTE AUTO 0.11 K/mm3 (0.00-0.10); IMMATURE GRAN PERCENT AUTO 1 % (0-1); LYMPHOCYTES ABSOLUTE AUTO 1.57 K/mm3 (0.84-5.20); LYMPHOCYTES PERCENT AUTO 15 % (21-46); MONOCYTES PERCENT AUTO 11 % (4-13); Mean Corpuscular HGB 30.7 pg (26.0-34.0); Mean Corpuscular HGB Conc 32.6 g/dL (31.5-36.5); Mean Corpuscular Volume 94 fL (80-100); Mean Platelet Volume 12.5 fL (9.1-12.4); NEUTROPHILS ABSOLUTE AUTO 6.72 K/mm3 (1.96-9.15); NEUTROPHILS PERCENT AUTO 63 % (41-73); Platelet Count 180 K/mm3 (150-400); RDW Coefficient Variation 13.2 % (11.7-14.2); RDW Standard Deviation 45.9 fL (35.1-46.3); Red Blood Cell Count 4.04 M/mm3 (4.30-5.90); White Blood Cell Count 10.66 K/mm3 (4.00-11.30)
[2024-11-02 05:25] LABS: Albumin, Blood 2.5 g/dL (3.4-5.0); Albumin/Globulin Ratio 0.9 (0.8-1.8); Bilirubin, Total 0.4 mg/dL (0.1-1.0); Bun/Creatinine Ratio 30.3 (12.0-20.0); Calcium, Blood 9.3 mg/dL (8.5-10.1); Creatinine, Blood 0.79 mg/dL (0.60-1.20); Globulin, Blood 2.9 g/dL (2.2-4.0); Potassium, Blood 4.3 mmol/L (3.5-5.5); Total Protein, Blood 5.4 g/dL (6.4-8.2)
[2024-11-02] MEDS ORDERED: Lactobacil 2-S.Thermo-Bifido 1 1 Cap PO SCH (09:00)
[2024-11-02] MEDS ORDERED: Bupivacaine 0.5% Inj 10 ML Vial ONE (12:56)
[2024-11-02] MEDS ORDERED: propofoL 100 ML IV ONE (12:56)
[2024-11-02] MEDS ORDERED: Lactated Ringer's 1,000 ML IV SCH (13:50)
[2024-11-02] MEDS ORDERED: Lidocaine HCl 2% 20 ML MDV ONE (14:07)
[2024-11-02] MEDS ORDERED: OxyCODONE HCL 10 MG TABCR PO SCH (15:30)
[2024-11-02] MEDS ORDERED: Acetaminophen 500 MG Tab PO SCH (15:30)
[2024-11-02] MEDS ORDERED: Chlorhexidine Mouth Care 15 ML UDC MT SCH (15:30)
[2024-11-02] MEDS ORDERED: Tranexamic Acid 100 ML IV SCH (15:35)
[2024-11-02] MEDS ORDERED: Ropivacaine 0.5% HCl/Pf 123.125 MG,EPINEPHrine HCL 0.25 MG,Ketorolac Tromethamine 15 MG... INFIL SCH (15:35)
[2024-11-02] MEDS ORDERED: HYDROmorphone HCl/Pf 1MG SYR ONE (15:35)
[2024-11-02] MEDS ORDERED: propofoL 50 ML IV ONE (15:36)
[2024-11-02] MEDS ORDERED: Vancomycin HCl 1000 MG ADDvantage ONE (15:52)
[2024-11-02] MEDS ORDERED: Phenylephrine HCl 100 MCG/ML-NS 10MLSYR (1MG/10ML) ONE ×2 (16:21→16:28)
[2024-11-02] MEDS ORDERED: ePHEDrine Sulfate 50 MG/ML 1ML Injection ONE (16:24)
[2024-11-02] MEDS ORDERED: Dexamethasone Sod Phos 10 MG/ML 1ML VIAL ONE (16:34)
[2024-11-02] MEDS ORDERED: Ondansetron HCl 2 MG / ML 2ML Vial ONE (16:34)
[2024-11-02] MEDS ORDERED: Vasopressin 20 UNITS/ML 1ML Vial ONE (16:41)
--- NOTE | 2024-11-02 19:30 | NUR ---
SHIFT SUMMARY POD4 L KNEE I&D, HE WAS PICKED UP AND TAKEN TO OR TODAY FOR ANOTHER WASHOUT AND REMAINED THERE THROUGH THE REST OF THE SHIFT. NO ACUTE EVENTS, CALL LIGHT IN REACH.
[2024-11-03 00:11] VITALS: BP 138/86
[2024-11-03 03:52] VITALS: BP 113/90
--- NOTE | 2024-11-03 04:37 | NUR ---
SHIFT SUMMARY NOC. PT POD 1 FOR LEFT KNEE REVISION. PT HAS MOY DRESSING OVER KNEE, DISTAL ASPECT OF DRESSING HAS SANGINEOUS DRAINAGE AND PRESSURE GAUZE/AMERICA WRAP TO LEFT LATERAL THIGH PRESENT. NO INCREASED DRAINAGE SINCE ARRIVAL TO THE FLOOR. PER HISTORIAN RESEARCH ASSISTANT REPORT SURGEON AWARE OF BLEEDING. SENSATION INTACT POST SPINAL. PT VOIDING URINE. PT MEDICATED FOR PAIN WITH NEED FOR BREAK THROUGH DILAUDID. RED SPOT ON PROXIMAL THIGH, MARKED FOR MARGINS. PT MAKES NEEDS KNOWN AND CALL LIGHT IN REACH.
[2024-11-03 05:05] LABS: BASOPHILS ABSOLUTE AUTO 0.05 K/mm3 (0.00-0.23); BASOPHILS PERCENT AUTO 0 % (0-2); EOSINOPHILS PERCENT AUTO 0 % (0-6); Hematocrit 35.8 % (37.0-53.0); Hemoglobin 11.9 g/dL (13.5-17.5); IMMATURE GRAN ABSOLUTE AUTO 0.15 K/mm3 (0.00-0.10); IMMATURE GRAN PERCENT AUTO 1 % (0-1); LYMPHOCYTES PERCENT AUTO 3 % (21-46); MONOCYTES PERCENT AUTO 5 % (4-13); Mean Corpuscular HGB Conc 33.2 g/dL (31.5-36.5); Mean Corpuscular Volume 93 fL (80-100); Mean Platelet Volume 12.6 fL (9.1-12.4); NEUTROPHILS ABSOLUTE AUTO 14.61 K/mm3 (1.96-9.15); NEUTROPHILS PERCENT AUTO 91 % (41-73); Platelet Count 195 K/mm3 (150-400); RDW Standard Deviation 44.1 fL (35.1-46.3); Red Blood Cell Count 3.84 M/mm3 (4.30-5.90); White Blood Cell Count 16.11 K/mm3 (4.00-11.30)
[2024-11-03 05:49] LABS: Albumin, Blood 2.6 g/dL (3.4-5.0); Albumin/Globulin Ratio 0.9 (0.8-1.8); Bilirubin, Total 0.5 mg/dL (0.1-1.0); Bun/Creatinine Ratio 42.1 (12.0-20.0); Calcium, Blood 9.5 mg/dL (8.5-10.1); Creatinine, Blood 0.74 mg/dL (0.60-1.20); Potassium, Blood 4.5 mmol/L (3.5-5.5); Total Protein, Blood 5.6 g/dL (6.4-8.2)
[2024-11-03 07:18] VITALS: BP 152/91
[2024-11-03] MEDS ORDERED: JUVEN PACKET1 EA10 PO (13:05)
[2024-11-03] MEDS ORDERED: ENOX40I SC (13:05)
[2024-11-03] MEDS ORDERED: VISBIOME 112.51 EACH PO (13:06)
[2024-11-03] MEDS ORDERED: CEFTRIAXON1 GM/50 M1 IV (13:07)
[2024-11-03] MEDS ORDERED: PERCOCET 10-321 EA13 PO (13:08)
--- NOTE | 2024-11-03 17:37 | NUR ---
DISCHARGE SUMMARY POD1 L TKA REVISION WITH ABX BEAD PLACEMENT AFTER INFECTION, A/OX4, VSS, TOLERATING PO, PAIN MANAGED PER EMAR, PIV REMVOED DURING DC INSTRUCTIONS. DISCUSSED DISCHARGE INSTRUCTIONS WITH HIM HIS AND HIS DAUGHTER ON THE PHONE INCUDING HOME CARE, MEDICATIONS, AND FOLLOW UP APPOINTMENTS. PROVIDED HIM WITH ADDITION MOY KIT PER ORTHO INSTRUCTIONS, INFUSION APPOINTMENTS SET, MEDS FAXED TO PHARMACY BY ADMIN ASST. DAUGHTER HAD SOME QUESTIONS R/T PAIN MEDS WHICH WAS ANSWERED AND DISCUSSED PER ORTHO DISCUSSION THIS AM. PT ESCORTED OUT VIA WC TO PRIVATE AUTO TO GO HOME.
== END 2024-11-03 16:52 | disposition home or self-care (01) | DRG 466 ==
LOC: ER 08:09 → SURS 08:10
PROVIDERS: Family Medicine; Orthopaedic Surgery; Student in an Organized Health Care Education/Training Program; ADMIT Internal Medicine
PROC: 0S9D3ZZ Drainage of Left Knee Joint, Percutaneous Approach (ICD-10-PCS; 2024-10-28)
PROC: 3E03329 Introduction of Other Anti-infective into Peripheral Vein, Percutaneous Approach (ICD-10-PCS; 2024-10-28)
PROC: 0SPD0JZ Removal of Synthetic Substitute from Left Knee Joint, Open Approach (ICD-10-PCS; 2024-10-29)
PROC: 0SRD0EZ Replacement of Left Knee Joint with Articulating Spacer, Open Approach (ICD-10-PCS; principal; 2024-10-29 08:30)
PROC: 0SBD0ZZ Excision of Left Knee Joint, Open Approach (ICD-10-PCS; 2024-11-02)
DX: T84.54XA Infection and inflammatory reaction due to internal left knee prosthesis, initial encounter (principal); A41.01 Sepsis due to Methicillin susceptible Staphylococcus aureus; L03.116 Cellulitis of left lower limb; T81.31XA Disruption of external operation (surgical) wound, not elsewhere classified, initial encounter; T81.44XA Sepsis following a procedure, initial encounter; N40.0 Benign prostatic hyperplasia without lower urinary tract symptoms; Z68.39 Body mass index [BMI] 39.0-39.9, adult; F10.21 Alcohol dependence, in remission; E66.01 Morbid (severe) obesity due to excess calories; M06.9 Rheumatoid arthritis, unspecified; E78.5 Hyperlipidemia, unspecified; I12.9 Hypertensive chronic kidney disease with stage 1 through stage 4 chronic kidney disease, or unspecified chronic kidney disease; E11.22 Type 2 diabetes mellitus with diabetic chronic kidney disease; N18.31 Chronic kidney disease, stage 3a; G89.4 Chronic pain syndrome; Z96.651 Presence of right artificial knee joint; Z88.1 Allergy status to other antibiotic agents; Z79.84 Long term (current) use of oral hypoglycemic drugs; Z79.899 Other long term (current) drug therapy; Z79.890 Hormone replacement therapy; Z79.1 Long term (current) use of non-steroidal anti-inflammatories (NSAID); Z98.890 Other specified postprocedural states; Z87.891 Personal history of nicotine dependence
CPT/HCPCS: 20610; 36415; 73560-LT; 73562-LT; 80048; 80053; 80202; 82947; 83036; 83605; 83735; 85025; 85651; 86140; 87040; 87070; 87071; 87075; 87077; 87147; 87186; 87205; 89051; 94762; 96365-59; 96366; 96367; 96375; 96375-59; 96376; 97110; 97116; 97162; 97164; 97165; 97530; 99284-25; A9270; C1713; C1776; G0378; J0171; J0690; J0692; J0735; J1100; J1171; J1650; J1885; J2371; J2405; J2543; J2704; J2795; J3010; J3370; J3480; J7030; J7040; J7050; J7120

== ENCOUNTER 2024-11-04 01:25 | Day surgery (SDC) | payer OTHER ==
[~2024-11-04 01:25] MED LIST changes: +CEFTRIAXON1 GM/50 M1 IV; +Diflucan150 MG PO; +ENOX40I SC; +JUVEN PACKET1 EA10 PO; +PERCOCET 10-321 EA13 PO; +VISBIOME 112.51 EACH PO
[2024-11-04] MEDS ORDERED: CefTRIAXone Sodium 1,000 MG in NS 100 ML IV SCH (06:00)
[2024-11-04 15:13] VITALS: BP 140/76
== END 2024-11-04 15:31 | disposition home or self-care (01) ==
LOC: ATC 01:25
DX: T84.54XA Infection and inflammatory reaction due to internal left knee prosthesis, initial encounter (principal); I10 Essential (primary) hypertension; E11.9 Type 2 diabetes mellitus without complications; Z88.1 Allergy status to other antibiotic agents; Z79.84 Long term (current) use of oral hypoglycemic drugs; Z79.899 Other long term (current) drug therapy
CPT/HCPCS: 96365; J0696

== ENCOUNTER 2024-11-05 14:51 | Day surgery (SDC) | payer OTHER ==
[~2024-11-05 14:51] MED LIST changes: +CefTRIAXone Sodium 1,000 MG in NS 100 ML IV SCH
[2024-11-05 15:17] VITALS: BP 131/106
== END 2024-11-05 15:34 | disposition home or self-care (01) ==
LOC: ATC 14:51
DX: T84.54XA Infection and inflammatory reaction due to internal left knee prosthesis, initial encounter (principal); L03.115 Cellulitis of right lower limb; E11.9 Type 2 diabetes mellitus without complications; I10 Essential (primary) hypertension; N40.0 Benign prostatic hyperplasia without lower urinary tract symptoms; Z88.8 Allergy status to other drugs, medicaments and biological substances; Z79.84 Long term (current) use of oral hypoglycemic drugs; Y83.8 Other surgical procedures as the cause of abnormal reaction of the patient, or of later complication, without mention of misadventure at the time of the procedure
CPT/HCPCS: 96365; J0696

== ENCOUNTER 2024-11-06 04:56 | Day surgery (SDC) | payer OTHER ==
[~2024-11-06 04:56] MED LIST changes: -CefTRIAXone Sodium 1,000 MG in NS 100 ML IV SCH
[2024-11-06] MEDS ORDERED: CefTRIAXone Sodium 1,000 MG in NS 100 ML IV SCH (06:00)
[2024-11-06 15:27] VITALS: BP 125/82
== END 2024-11-06 15:50 | disposition home or self-care (01) ==
LOC: ATC 04:56
DX: T84.54XA Infection and inflammatory reaction due to internal left knee prosthesis, initial encounter (principal); I10 Essential (primary) hypertension; E11.9 Type 2 diabetes mellitus without complications; Z88.1 Allergy status to other antibiotic agents; Z88.8 Allergy status to other drugs, medicaments and biological substances; Z79.84 Long term (current) use of oral hypoglycemic drugs; Z79.899 Other long term (current) drug therapy; M79.89 Other specified soft tissue disorders; Z96.653 Presence of artificial knee joint, bilateral
CPT/HCPCS: 73560-RT; 73562-LT; 96365; J0696

== ENCOUNTER 2024-11-07 03:21 | Day surgery (SDC) | payer OTHER ==
[2024-11-07] MEDS ORDERED: CefTRIAXone Sodium 1,000 MG in NS 100 ML IV SCH (06:00)
[2024-11-07 15:35] VITALS: BP 99/54
== END 2024-11-07 15:50 | disposition home or self-care (01) ==
LOC: ATC 03:21
DX: T84.54XA Infection and inflammatory reaction due to internal left knee prosthesis, initial encounter (principal); I10 Essential (primary) hypertension; E11.9 Type 2 diabetes mellitus without complications; N40.0 Benign prostatic hyperplasia without lower urinary tract symptoms; M06.9 Rheumatoid arthritis, unspecified
CPT/HCPCS: 73560-RT; 73562-LT; 96365; J0696

== ENCOUNTER 2024-11-08 15:06 | Day surgery (SDC) | payer OTHER ==
[~2024-11-08 15:06] MED LIST changes: +CefTRIAXone Sodium 1,000 MG in NS 100 ML IV SCH
[2024-11-08 15:23] VITALS: BP 126/77
== END 2024-11-08 15:40 | disposition home or self-care (01) ==
LOC: ATC 15:06
DX: T84.54XA Infection and inflammatory reaction due to internal left knee prosthesis, initial encounter (principal); I10 Essential (primary) hypertension; E11.9 Type 2 diabetes mellitus without complications; M06.9 Rheumatoid arthritis, unspecified
CPT/HCPCS: 96365; J0696

== ENCOUNTER 2024-11-09 00:08 | Day surgery (SDC) | payer OTHER ==
[~2024-11-09 00:08] MED LIST changes: -CefTRIAXone Sodium 1,000 MG in NS 100 ML IV SCH
[2024-11-09] MEDS ORDERED: CefTRIAXone Sodium 1,000 MG in NS 100 ML IV SCH (06:00)
[2024-11-09 15:14] VITALS: BP 162/91
== END 2024-11-09 15:38 | disposition home or self-care (01) ==
LOC: ATC 00:08
DX: T84.54XA Infection and inflammatory reaction due to internal left knee prosthesis, initial encounter (principal); E11.9 Type 2 diabetes mellitus without complications; I10 Essential (primary) hypertension; N40.0 Benign prostatic hyperplasia without lower urinary tract symptoms; Z79.84 Long term (current) use of oral hypoglycemic drugs; Z79.899 Other long term (current) drug therapy; Z88.1 Allergy status to other antibiotic agents; Z87.891 Personal history of nicotine dependence
CPT/HCPCS: 96365; J0696

== ENCOUNTER 2024-11-10 06:42 | Day surgery (SDC) | payer OTHER ==
[~2024-11-10 06:42] MED LIST changes: +CefTRIAXone Sodium 1,000 MG in NS 100 ML IV SCH
[2024-11-10 11:35] VITALS: BP 170/95
[2024-11-11] MEDS ORDERED: [UNRECOGNIZED DRUG - OTHER] SC (15:14)
== END 2024-11-10 11:55 | disposition home or self-care (01) ==
LOC: ATC 06:42
DX: T84.54XA Infection and inflammatory reaction due to internal left knee prosthesis, initial encounter (principal); E11.9 Type 2 diabetes mellitus without complications; I10 Essential (primary) hypertension; N40.0 Benign prostatic hyperplasia without lower urinary tract symptoms; M06.9 Rheumatoid arthritis, unspecified; Z87.891 Personal history of nicotine dependence; Z79.1 Long term (current) use of non-steroidal anti-inflammatories (NSAID); Z79.84 Long term (current) use of oral hypoglycemic drugs; Z79.899 Other long term (current) drug therapy; Z88.1 Allergy status to other antibiotic agents
CPT/HCPCS: 96365; J0696

== ENCOUNTER 2024-11-11 15:03 | Day surgery (SDC) | payer OTHER ==
[2024-11-11 15:10] VITALS: BP 157/82
[2024-11-11] MEDS ORDERED: [UNRECOGNIZED DRUG - OTHER] SC (15:14)
== END 2024-11-11 15:34 | disposition home or self-care (01) ==
LOC: ATC 15:03
DX: T84.54XA Infection and inflammatory reaction due to internal left knee prosthesis, initial encounter (principal); E11.9 Type 2 diabetes mellitus without complications; I10 Essential (primary) hypertension; M06.9 Rheumatoid arthritis, unspecified; N40.0 Benign prostatic hyperplasia without lower urinary tract symptoms; Z87.891 Personal history of nicotine dependence; Z79.84 Long term (current) use of oral hypoglycemic drugs; Z79.899 Other long term (current) drug therapy; Z88.1 Allergy status to other antibiotic agents
CPT/HCPCS: 96365; J0696

== ENCOUNTER 2024-11-12 15:12 | Day surgery (SDC) | payer OTHER ==
[~2024-11-12 15:12] MED LIST changes: +[UNRECOGNIZED DRUG - OTHER] SC
[2024-11-12 15:21] VITALS: BP 153/85
== END 2024-11-12 15:45 | disposition home or self-care (01) ==
LOC: ATC 15:12
DX: T84.54XA Infection and inflammatory reaction due to internal left knee prosthesis, initial encounter (principal); I10 Essential (primary) hypertension; E11.9 Type 2 diabetes mellitus without complications; M06.9 Rheumatoid arthritis, unspecified; Z88.1 Allergy status to other antibiotic agents; Z79.84 Long term (current) use of oral hypoglycemic drugs; Z79.899 Other long term (current) drug therapy
CPT/HCPCS: 96365; J0696

== ENCOUNTER 2024-11-13 03:49 | Day surgery (SDC) | payer OTHER ==
[2024-11-13 15:06] VITALS: BP 140/84
== END 2024-11-13 15:27 | disposition home or self-care (01) ==
LOC: ATC 03:49
DX: T84.54XA Infection and inflammatory reaction due to internal left knee prosthesis, initial encounter (principal); I10 Essential (primary) hypertension; E11.9 Type 2 diabetes mellitus without complications; Z88.1 Allergy status to other antibiotic agents; Z79.84 Long term (current) use of oral hypoglycemic drugs; Z79.899 Other long term (current) drug therapy; Z87.891 Personal history of nicotine dependence
CPT/HCPCS: 96365; J0696

== ENCOUNTER 2024-11-14 01:04 | Day surgery (SDC) | payer OTHER ==
[~2024-11-14 01:04] MED LIST changes: -CefTRIAXone Sodium 1,000 MG in NS 100 ML IV SCH
[2024-11-14] MEDS ORDERED: CefTRIAXone Sodium 1,000 MG in NS 100 ML IV SCH (06:00)
[2024-11-14 15:31] VITALS: BP 137/82
== END 2024-11-14 15:58 | disposition home or self-care (01) ==
LOC: ATC 01:04
DX: T84.54XA Infection and inflammatory reaction due to internal left knee prosthesis, initial encounter (principal); I10 Essential (primary) hypertension; E11.9 Type 2 diabetes mellitus without complications; Z88.8 Allergy status to other drugs, medicaments and biological substances
CPT/HCPCS: 96365; J0696

== ENCOUNTER 2024-11-15 05:27 | Day surgery (SDC) | payer OTHER ==
[2024-11-15] MEDS ORDERED: CefTRIAXone Sodium 1,000 MG in NS 100 ML IV SCH (06:00)
[2024-11-15 13:00] VITALS: BP 150/84
== END 2024-11-15 13:27 | disposition home or self-care (01) ==
LOC: ATC 05:27
DX: T84.54XA Infection and inflammatory reaction due to internal left knee prosthesis, initial encounter (principal); E11.9 Type 2 diabetes mellitus without complications; I10 Essential (primary) hypertension; N40.0 Benign prostatic hyperplasia without lower urinary tract symptoms; M06.9 Rheumatoid arthritis, unspecified; Z79.84 Long term (current) use of oral hypoglycemic drugs
CPT/HCPCS: 96365; J0696

== ENCOUNTER 2024-11-16 04:22 | Day surgery (SDC) | payer OTHER ==
[2024-11-16] MEDS ORDERED: CefTRIAXone Sodium 1,000 MG in NS 100 ML IV SCH (06:00)
[2024-11-16 13:10] VITALS: BP 128/77
== END 2024-11-16 13:39 | disposition home or self-care (01) ==
LOC: ATC 04:22
DX: T84.54XA Infection and inflammatory reaction due to internal left knee prosthesis, initial encounter (principal); E11.9 Type 2 diabetes mellitus without complications; I10 Essential (primary) hypertension; M06.9 Rheumatoid arthritis, unspecified; N40.0 Benign prostatic hyperplasia without lower urinary tract symptoms; Z87.891 Personal history of nicotine dependence; Z79.84 Long term (current) use of oral hypoglycemic drugs; Z79.899 Other long term (current) drug therapy; Z88.1 Allergy status to other antibiotic agents
CPT/HCPCS: 96365; J0696

== ENCOUNTER 2024-11-17 05:06 | Day surgery (SDC) | payer OTHER ==
[2024-11-17] MEDS ORDERED: CefTRIAXone Sodium 1,000 MG in NS 100 ML IV SCH (06:00)
[2024-11-17 08:25] VITALS: BP 133/76
== END 2024-11-17 08:48 | disposition home or self-care (01) ==
LOC: ATC 05:06
DX: T84.54XA Infection and inflammatory reaction due to internal left knee prosthesis, initial encounter (principal); E11.9 Type 2 diabetes mellitus without complications; I10 Essential (primary) hypertension; M06.9 Rheumatoid arthritis, unspecified; N40.0 Benign prostatic hyperplasia without lower urinary tract symptoms; Z87.891 Personal history of nicotine dependence; Z79.84 Long term (current) use of oral hypoglycemic drugs; Z79.899 Other long term (current) drug therapy; Z88.2 Allergy status to sulfonamides
CPT/HCPCS: 96365; J0696

== ENCOUNTER 2024-11-18 08:54 | Day surgery (SDC) | payer OTHER ==
[~2024-11-18 08:54] MED LIST changes: +CefTRIAXone Sodium 1,000 MG in NS 100 ML IV SCH
[2024-11-18 09:37] LABS: BASOPHILS ABSOLUTE AUTO 0.11 K/mm3 (0.00-0.23); BASOPHILS PERCENT AUTO 1 % (0-2); EOSINOPHILS ABSOLUTE AUTO 0.52 K/mm3 (0.00-0.68); EOSINOPHILS PERCENT AUTO 6 % (0-6); Hematocrit 37.9 % (37.0-53.0); Hemoglobin 12.2 g/dL (13.5-17.5); IMMATURE GRAN ABSOLUTE AUTO 0.02 K/mm3 (0.00-0.10); IMMATURE GRAN PERCENT AUTO 0 % (0-1); LYMPHOCYTES ABSOLUTE AUTO 1.03 K/mm3 (0.84-5.20); LYMPHOCYTES PERCENT AUTO 11 % (21-46); MONOCYTES ABSOLUTE AUTO 1.41 K/mm3 (0.16-1.47); MONOCYTES PERCENT AUTO 15 % (4-13); Mean Corpuscular HGB 30.5 pg (26.0-34.0); Mean Corpuscular HGB Conc 32.2 g/dL (31.5-36.5); Mean Corpuscular Volume 95 fL (80-100); Mean Platelet Volume 12.2 fL (9.1-12.4); NEUTROPHILS ABSOLUTE AUTO 6.25 K/mm3 (1.96-9.15); NEUTROPHILS PERCENT AUTO 67 % (41-73); Platelet Count 265 K/mm3 (150-400); RDW Coefficient Variation 13.5 % (11.7-14.2); RDW Standard Deviation 47.5 fL (35.1-46.3); White Blood Cell Count 9.34 K/mm3 (4.00-11.30)
[2024-11-18 09:38] VITALS: BP 103/78
== END 2024-11-18 09:51 | disposition home or self-care (01) ==
LOC: ATC 08:54
PROVIDERS: Orthopaedic Surgery
DX: T84.54XA Infection and inflammatory reaction due to internal left knee prosthesis, initial encounter (principal); I10 Essential (primary) hypertension; E11.9 Type 2 diabetes mellitus without complications; M06.9 Rheumatoid arthritis, unspecified
CPT/HCPCS: 85025; 85651; 86140; 96365; J0696

== ENCOUNTER 2024-11-19 03:01 | Day surgery (SDC) | payer OTHER ==
[~2024-11-19 03:01] MED LIST changes: -CefTRIAXone Sodium 1,000 MG in NS 100 ML IV SCH
[2024-11-19] MEDS ORDERED: CefTRIAXone Sodium 1,000 MG in NS 100 ML IV SCH (06:00)
[2024-11-19 09:34] VITALS: BP 106/66
== END 2024-11-19 09:51 | disposition home or self-care (01) ==
LOC: ATC 03:01
DX: T84.54XA Infection and inflammatory reaction due to internal left knee prosthesis, initial encounter (principal); I10 Essential (primary) hypertension; E11.9 Type 2 diabetes mellitus without complications; N40.0 Benign prostatic hyperplasia without lower urinary tract symptoms; M06.9 Rheumatoid arthritis, unspecified; Z87.891 Personal history of nicotine dependence; Z79.84 Long term (current) use of oral hypoglycemic drugs; Z79.1 Long term (current) use of non-steroidal anti-inflammatories (NSAID); Z79.899 Other long term (current) drug therapy; Z88.1 Allergy status to other antibiotic agents
CPT/HCPCS: 96365; J0696

== ENCOUNTER 2024-11-20 03:35 | Day surgery (SDC) | payer OTHER ==
[2024-11-20] MEDS ORDERED: CefTRIAXone Sodium 1,000 MG in NS 100 ML IV SCH (07:05)
[2024-11-20 09:37] VITALS: BP 138/84
== END 2024-11-20 09:57 | disposition home or self-care (01) ==
LOC: ATC 03:35
DX: T84.54XA Infection and inflammatory reaction due to internal left knee prosthesis, initial encounter (principal); Y79.2 Prosthetic and other implants, materials and accessory orthopedic devices associated with adverse incidents; I10 Essential (primary) hypertension; E11.9 Type 2 diabetes mellitus without complications; Z88.1 Allergy status to other antibiotic agents; Z88.8 Allergy status to other drugs, medicaments and biological substances; Z79.899 Other long term (current) drug therapy; Z87.891 Personal history of nicotine dependence
CPT/HCPCS: 96365; J0696

== ENCOUNTER 2024-11-21 07:05 | Day surgery (SDC) | payer OTHER ==
[~2024-11-21 07:05] MED LIST changes: +CefTRIAXone Sodium 1,000 MG in NS 100 ML IV SCH
[2024-11-21 09:42] VITALS: BP 160/68
== END 2024-11-21 09:59 | disposition home or self-care (01) ==
LOC: ATC 07:05
DX: T84.54XA Infection and inflammatory reaction due to internal left knee prosthesis, initial encounter (principal); I10 Essential (primary) hypertension; E11.9 Type 2 diabetes mellitus without complications; Z79.84 Long term (current) use of oral hypoglycemic drugs
CPT/HCPCS: 96365; J0696

== ENCOUNTER 2024-11-22 03:35 | Day surgery (SDC) | payer OTHER ==
[2024-11-22] MEDS ORDERED: CefTRIAXone Sodium 1,000 MG in NS 100 ML IV SCH (06:00)
[2024-11-22 09:39] VITALS: BP 117/68
== END 2024-11-22 09:55 | disposition home or self-care (01) ==
LOC: ATC 03:35
DX: T84.54XA Infection and inflammatory reaction due to internal left knee prosthesis, initial encounter (principal); I10 Essential (primary) hypertension; E11.9 Type 2 diabetes mellitus without complications; M06.9 Rheumatoid arthritis, unspecified; Z47.1 Aftercare following joint replacement surgery; Z96.652 Presence of left artificial knee joint
CPT/HCPCS: 89051; 96365; J0696

== ENCOUNTER → 2024-11-22 | Outpatient (CLI) | payer OTHER ==
[~2024-11-22] MED LIST changes: -CefTRIAXone Sodium 1,000 MG in NS 100 ML IV SCH
[2024-11-22 09:34] LABS: Crystals, Synovial Fluid Not Seen (Not Seen)
[2024-11-22 09:52] LABS: BODY FLUID RBC 0.043 M/mm3 (0-0)
[2024-11-22 10:11] LABS: RBC Count, Synovial Fluid 43000 /mm3 (0-0)
[2024-11-22 11:44] LABS: Lymphs, Synovial Fluid 4 % (0-15); Monocytes/Macrophages, Synovia 5 % (0-65); Neutrophils, Synovial Fluid 91 % (0-24)
[2024-11-22 11:48] LABS: Appearance, Synovial Fluid Hazy (Clear); Color, Synovial Fluid Red (None-P Yel)
[2024-11-23 17:01] LABS: WBC Count, Synovial Fluid 31240 /mm3 (0-180)
== END | disposition home or self-care (01) ==
LOC: LAB 08:30 → LAB SHORT 08:30
PROVIDERS: Orthopaedic Surgery
DX: Z47.1 Aftercare following joint replacement surgery (principal); Z96.652 Presence of left artificial knee joint
CPT/HCPCS: 87070; 87075; 87102; 87116; 87205; 89051

== ENCOUNTER 2024-11-23 01:35 | Day surgery (SDC) | payer OTHER ==
[2024-11-23] MEDS ORDERED: CefTRIAXone Sodium 1,000 MG in NS 100 ML IV SCH (06:00)
[2024-11-23 09:24] VITALS: BP 132/83
[2024-11-24] MEDS ORDERED: HYDACE10B PO (11:30)
== END 2024-11-23 16:56 | disposition home or self-care (01) ==
LOC: ATC 01:35
DX: T84.54XA Infection and inflammatory reaction due to internal left knee prosthesis, initial encounter (principal); E11.9 Type 2 diabetes mellitus without complications; I10 Essential (primary) hypertension; M06.9 Rheumatoid arthritis, unspecified; Z96.652 Presence of left artificial knee joint; Z88.1 Allergy status to other antibiotic agents; Z79.899 Other long term (current) drug therapy; Z79.84 Long term (current) use of oral hypoglycemic drugs; Z87.891 Personal history of nicotine dependence; Y79.2 Prosthetic and other implants, materials and accessory orthopedic devices associated with adverse incidents
CPT/HCPCS: 96365; J0696

== ENCOUNTER 2024-11-24 07:19 | Day surgery (SDC) | payer OTHER ==
[~2024-11-24 07:19] MED LIST changes: +CefTRIAXone Sodium 1,000 MG in NS 100 ML IV SCH
[2024-11-24 09:22] VITALS: BP 147/84
[2024-11-24] MEDS ORDERED: HYDACE10B PO (11:30)
== END 2024-11-24 09:49 | disposition home or self-care (01) ==
LOC: ATC 07:19
DX: T84.54XA Infection and inflammatory reaction due to internal left knee prosthesis, initial encounter (principal); I10 Essential (primary) hypertension; E11.9 Type 2 diabetes mellitus without complications; M06.9 Rheumatoid arthritis, unspecified; N40.0 Benign prostatic hyperplasia without lower urinary tract symptoms; Z88.8 Allergy status to other drugs, medicaments and biological substances
CPT/HCPCS: 96365; J0696

== ENCOUNTER 2024-11-24 10:54 | Day surgery (SDC) | payer OTHER ==
[2024-11-24] VITALS (15 sets, daily range): BP systolic 115–165; BP diastolic 77–132
[~2024-11-24 10:54] MED LIST changes: -CefTRIAXone Sodium 1,000 MG in NS 100 ML IV SCH
--- NOTE | 2024-11-24 11:10 | NUR ---
PT ARRIVED TO THE ROOM AT 1100. PT ALERT ORIENTED AND PLEASANT. DR. BENNETT NOTIFIED THAT PATIENT HAS ARRIVED AND IS IN RM 227.
[2024-11-24] MEDS ORDERED: HYDACE10B PO ×2 (11:30)
[2024-11-24] MEDS ORDERED: NAPR500 PO (11:31)
[2024-11-24] MEDS ORDERED: Lactated Ringer's 1,000 ML IV SCH (14:30)
[2024-11-24] MEDS ORDERED: Dexamethasone Sod Phos 10 MG/ML 1ML VIAL ONE (15:11)
[2024-11-24] MEDS ORDERED: Ondansetron HCl 2 MG / ML 2ML Vial ONE (15:11)
[2024-11-24] MEDS ORDERED: FentaNYL Citrate 50 MCG/ML 5 ML Injection ONE (15:11)
[2024-11-24] MEDS ORDERED: Ketorolac Tromethamine 30mg Vial ONE (15:11)
[2024-11-24] MEDS ORDERED: propofoL 20 ML IV ONE (15:11)
[2024-11-24] MEDS ORDERED: CeFAZolin Sodium 3,000 MG in NS 100 ML IV SCH (15:35)
[2024-11-24] MEDS ORDERED: Vancomycin HCl 1000 MG ADDvantage ONE (15:39)
--- NOTE | 2024-11-24 16:22 | NUR ---
11/24/[address] STARTED A 20G IV TO LT WRIST.
[2024-11-24] MEDS ORDERED: FentaNYL Citrate 50 MCG/ML 2 ML Injection ONE (17:13)
[2024-11-24] MEDS ORDERED: HYDROcodone 10-APAP 325 TAB PO PRN (18:10)
[2024-11-24] MEDS ORDERED: HYDROmorphone HCl/Pf 1MG SYR IV PRN (18:10)
--- NOTE | 2024-11-24 19:22 | NUR ---
SHIFT SUMMARY PT ARRIVED BACK TO THE ROOM AT 1710 FROM PACU. PAIN MANAGED WITH PO PAIN MEDICATION. PT IS PLANNING TO DISCHARGE HOME THIS EVENING. MOY DRESSING IN PLACE TO L KNEE. PT USES CALL LIGHT APPROPRIATELY.
--- NOTE | 2024-11-24 20:50 | NUR ---
DISCHARGE THIS RN REVIEWED D/C INSTRUCTIONS WITH THE PATIENT AND HIS . THE AND PATIENT VERBALIZED THAT THEY HAVE NO QUESTIONS OR CONCERNS AT THIS TIME AND THAT THEY FEEL SAFE TO GO HOME. THE PATIENT REPORTS THAT HE DOES NOT NEED PAIN MEDICATION AT THIS TIME. THE PATIENT IS ABLE TO STAND AND TRANSFER WITH MINIMAL ASSISTANCE. THE PATIENT IS BEING WHEELED OUT TO HIS CARE BY THE IRON INSTALLER.
--- NOTE | 2024-11-24 20:53 | NUR ---
SHIFT CHANGE *LATE ENTRY* RECIEVED BEDSIDE SHIFT REPORT FROM BISHNU Cox RN. PT POD 0-I&D L KNEE, AMERICA WRAP NOTED IN PLACE OVER KNEE, W/MOY DRESSING UNDER. PER REPORT PT TO DC HOME TONIGHT AT 2039. HAD TIMBER GIRDLER AMBULATE PT TO RESTROOM & BACK TO BED, PT WAS MEDICATED FOR PAIN APPROX 1800, STATES THEY ALREADY RECIVED PAIN MED PERSCRIPTION. CLINIC ASSISTANT ASSISTED W/DC PT HOME.
== END 2024-11-24 20:50 | disposition home or self-care (01) ==
LOC: ORSCMMR 10:54 → EDSTATUS 13:01 → SURS 20:50 → ORSCMMR 20:50 → SURS 20:50
PROVIDERS: Orthopaedic Surgery
PROC: 0S9D0ZZ Drainage of Left Knee Joint, Open Approach (ICD-10-PCS; principal; 2024-11-24 15:30)
DX: T84.54XA Infection and inflammatory reaction due to internal left knee prosthesis, initial encounter (principal); M06.9 Rheumatoid arthritis, unspecified; E11.9 Type 2 diabetes mellitus without complications; I10 Essential (primary) hypertension; Z79.4 Long term (current) use of insulin; Z79.84 Long term (current) use of oral hypoglycemic drugs; Z79.899 Other long term (current) drug therapy; Z88.1 Allergy status to other antibiotic agents; Z91.048 Other nonmedicinal substance allergy status
CPT/HCPCS: 82947; 87070; 87075; 87205; A9270; C1713; J1100; J1885; J2405; J2704; J3010; J3370; J7120

== ENCOUNTER 2024-11-25 02:41 | Day surgery (SDC) | payer OTHER ==
[2024-11-25] MEDS ORDERED: CefTRIAXone Sodium 1,000 MG in NS 100 ML IV SCH (06:00)
[2024-11-25 09:27] VITALS: BP 130/73
== END 2024-11-25 09:48 | disposition home or self-care (01) ==
LOC: ATC 02:41
DX: T84.54XA Infection and inflammatory reaction due to internal left knee prosthesis, initial encounter (principal); E11.9 Type 2 diabetes mellitus without complications; I10 Essential (primary) hypertension; M06.9 Rheumatoid arthritis, unspecified; N40.0 Benign prostatic hyperplasia without lower urinary tract symptoms; Z87.891 Personal history of nicotine dependence; Z79.84 Long term (current) use of oral hypoglycemic drugs; Z79.1 Long term (current) use of non-steroidal anti-inflammatories (NSAID); Z79.899 Other long term (current) drug therapy; Z88.1 Allergy status to other antibiotic agents
CPT/HCPCS: 96365; J0696

== ENCOUNTER 2024-11-26 01:48 | Day surgery (SDC) | payer OTHER ==
[2024-11-26] MEDS ORDERED: CefTRIAXone Sodium 1,000 MG in NS 100 ML IV SCH (06:00)
[2024-11-26 09:10] VITALS: BP 120/71
--- NOTE | 2024-11-26 13:00 | NUR ---
PATIENT CAME IN TODAY WITH CONCERNS THAT HIS MOY DRSG WAS TOO SATURATED. THE DRESSING WAS SATURATED WITH BLOOD TO ALL EDGES BUT NOT LEAKING. RECIEVED AN ORDER FROM STEPHANIE ARMSTRONG TO CHANGE THE DRSG TODAY. CHANGED DRSG AND SENT PATIENT WITH SUPPLIES FOR REINFORCEMENT PER ORDERS IF IT CONTINUES TO DRAIN IN EXCESS. DRSG CHANGED BY [employer]I PLANT MANAGER.
== END 2024-11-26 10:00 | disposition home or self-care (01) ==
LOC: ATC 01:48
DX: T84.54XA Infection and inflammatory reaction due to internal left knee prosthesis, initial encounter (principal); I10 Essential (primary) hypertension; E11.9 Type 2 diabetes mellitus without complications; M06.9 Rheumatoid arthritis, unspecified; N40.0 Benign prostatic hyperplasia without lower urinary tract symptoms; Z79.84 Long term (current) use of oral hypoglycemic drugs
CPT/HCPCS: 96365; J0696

== ENCOUNTER 2024-11-27 04:02 | Day surgery (SDC) | payer OTHER ==
[2024-11-27] MEDS ORDERED: CefTRIAXone Sodium 1,000 MG in NS 100 ML IV SCH (06:00)
[2024-11-27 09:21] VITALS: BP 121/89
== END 2024-11-27 09:43 | disposition home or self-care (01) ==
LOC: ATC 04:02
DX: T84.54XA Infection and inflammatory reaction due to internal left knee prosthesis, initial encounter (principal); I10 Essential (primary) hypertension; E11.9 Type 2 diabetes mellitus without complications; N40.0 Benign prostatic hyperplasia without lower urinary tract symptoms; M06.9 Rheumatoid arthritis, unspecified; Z79.84 Long term (current) use of oral hypoglycemic drugs; Z79.1 Long term (current) use of non-steroidal anti-inflammatories (NSAID); Z79.899 Other long term (current) drug therapy; Z88.1 Allergy status to other antibiotic agents
CPT/HCPCS: 96365; J0696

== ENCOUNTER 2024-11-28 07:31 | Day surgery (SDC) | payer OTHER ==
[~2024-11-28 07:31] MED LIST changes: +CefTRIAXone Sodium 1,000 MG in NS 100 ML IV SCH
[2024-11-28 09:31] VITALS: BP 118/78
== END 2024-11-28 09:52 | disposition home or self-care (01) ==
LOC: ATC 07:31
DX: T84.54XA Infection and inflammatory reaction due to internal left knee prosthesis, initial encounter (principal); I10 Essential (primary) hypertension; E11.9 Type 2 diabetes mellitus without complications; N40.0 Benign prostatic hyperplasia without lower urinary tract symptoms; M06.9 Rheumatoid arthritis, unspecified; Z87.891 Personal history of nicotine dependence; Z79.84 Long term (current) use of oral hypoglycemic drugs; Z79.1 Long term (current) use of non-steroidal anti-inflammatories (NSAID); Z79.899 Other long term (current) drug therapy; Z88.1 Allergy status to other antibiotic agents
CPT/HCPCS: 96365; J0696

== ENCOUNTER 2024-11-29 01:12 | Day surgery (SDC) | payer OTHER ==
[2024-11-29 09:46] VITALS: BP 137/76
== END 2024-11-29 10:03 | disposition home or self-care (01) ==
LOC: ATC 01:12
DX: T84.54XA Infection and inflammatory reaction due to internal left knee prosthesis, initial encounter (principal); E11.9 Type 2 diabetes mellitus without complications; I10 Essential (primary) hypertension; M06.9 Rheumatoid arthritis, unspecified; Z87.891 Personal history of nicotine dependence; Z88.1 Allergy status to other antibiotic agents; Z79.84 Long term (current) use of oral hypoglycemic drugs; Z79.899 Other long term (current) drug therapy
CPT/HCPCS: 96365; J0696

== ENCOUNTER 2024-11-30 02:35 | Day surgery (SDC) | payer OTHER ==
[~2024-11-30 02:35] MED LIST changes: -CefTRIAXone Sodium 1,000 MG in NS 100 ML IV SCH
[2024-11-30] MEDS ORDERED: CefTRIAXone Sodium 1,000 MG in NS 100 ML IV SCH (06:00)
[2024-11-30 10:05] VITALS: BP 123/93
== END 2024-11-30 10:05 | disposition home or self-care (01) ==
LOC: ATC 02:35
DX: T84.54XA Infection and inflammatory reaction due to internal left knee prosthesis, initial encounter (principal); E11.9 Type 2 diabetes mellitus without complications; I10 Essential (primary) hypertension; M06.9 Rheumatoid arthritis, unspecified; N40.0 Benign prostatic hyperplasia without lower urinary tract symptoms; Z87.891 Personal history of nicotine dependence; Z79.84 Long term (current) use of oral hypoglycemic drugs; Z79.1 Long term (current) use of non-steroidal anti-inflammatories (NSAID); Z79.899 Other long term (current) drug therapy; Z88.1 Allergy status to other antibiotic agents
CPT/HCPCS: 96365; J0696

== ENCOUNTER 2024-12-01 03:33 | Day surgery (SDC) | payer OTHER ==
[2024-12-01] MEDS ORDERED: CefTRIAXone Sodium 1,000 MG in NS 100 ML IV SCH (06:00)
[2024-12-01 09:38] VITALS: BP 128/62
== END 2024-12-01 10:00 | disposition home or self-care (01) ==
LOC: ATC 03:33
DX: T84.54XA Infection and inflammatory reaction due to internal left knee prosthesis, initial encounter (principal); E11.9 Type 2 diabetes mellitus without complications; I10 Essential (primary) hypertension; M06.9 Rheumatoid arthritis, unspecified; N40.0 Benign prostatic hyperplasia without lower urinary tract symptoms; Z87.891 Personal history of nicotine dependence; Z79.84 Long term (current) use of oral hypoglycemic drugs; Z79.1 Long term (current) use of non-steroidal anti-inflammatories (NSAID); Z79.899 Other long term (current) drug therapy; Z88.1 Allergy status to other antibiotic agents
CPT/HCPCS: 96365; J0696

== ENCOUNTER 2024-12-02 04:20 | Day surgery (SDC) | payer OTHER ==
[2024-12-02] MEDS ORDERED: CefTRIAXone Sodium 1,000 MG in NS 100 ML IV SCH (06:00)
[2024-12-02 09:41] VITALS: BP 103/89
[2024-12-03] MEDS ORDERED: CefTRIAXone Sodium 1,000 MG in NS 100 ML IV SCH (06:00)
== END 2024-12-02 09:56 | disposition home or self-care (01) ==
LOC: ATC 04:20
DX: T84.54XA Infection and inflammatory reaction due to internal left knee prosthesis, initial encounter (principal); I10 Essential (primary) hypertension; E11.9 Type 2 diabetes mellitus without complications; N40.0 Benign prostatic hyperplasia without lower urinary tract symptoms; M06.9 Rheumatoid arthritis, unspecified; Z87.891 Personal history of nicotine dependence; Z79.84 Long term (current) use of oral hypoglycemic drugs; Z79.1 Long term (current) use of non-steroidal anti-inflammatories (NSAID); Z79.899 Other long term (current) drug therapy; Z88.1 Allergy status to other antibiotic agents
CPT/HCPCS: 96365; J0696

== ENCOUNTER 2024-12-03 09:14 | Day surgery (SDC) | payer OTHER ==
[2024-12-03 09:30] VITALS: BP 127/78
[2024-12-03] MEDS ORDERED: CefTRIAXone Sodium 1,000 MG in NS 100 ML IV SCH (09:40)
== END 2024-12-03 09:55 | disposition home or self-care (01) ==
LOC: ATC 09:14
DX: T84.54XA Infection and inflammatory reaction due to internal left knee prosthesis, initial encounter (principal); I10 Essential (primary) hypertension; E11.9 Type 2 diabetes mellitus without complications; N40.0 Benign prostatic hyperplasia without lower urinary tract symptoms; M06.9 Rheumatoid arthritis, unspecified; Z87.891 Personal history of nicotine dependence; Z79.84 Long term (current) use of oral hypoglycemic drugs; Z79.1 Long term (current) use of non-steroidal anti-inflammatories (NSAID); Z79.899 Other long term (current) drug therapy; Z88.1 Allergy status to other antibiotic agents
CPT/HCPCS: 96365; J0696

== ENCOUNTER 2024-12-04 03:55 | Day surgery (SDC) | payer OTHER ==
[~2024-12-04 03:55] MED LIST changes: +CefTRIAXone Sodium 1,000 MG in NS 100 ML IV SCH
[2024-12-04 09:45] VITALS: BP 130/80
== END 2024-12-04 10:10 | disposition home or self-care (01) ==
LOC: ATC 03:55
DX: T84.54XA Infection and inflammatory reaction due to internal left knee prosthesis, initial encounter (principal); I10 Essential (primary) hypertension; E11.9 Type 2 diabetes mellitus without complications; Z87.891 Personal history of nicotine dependence; Z88.1 Allergy status to other antibiotic agents; Z79.84 Long term (current) use of oral hypoglycemic drugs; Z79.899 Other long term (current) drug therapy
CPT/HCPCS: 96365; J0696

== ENCOUNTER 2024-12-05 04:53 | Day surgery (SDC) | payer OTHER ==
[~2024-12-05 04:53] MED LIST changes: -CefTRIAXone Sodium 1,000 MG in NS 100 ML IV SCH
[2024-12-05] MEDS ORDERED: CefTRIAXone Sodium 1,000 MG in NS 100 ML IV SCH (06:00)
[2024-12-05 09:41] VITALS: BP 121/81
== END 2024-12-05 10:03 | disposition home or self-care (01) ==
LOC: ATC 04:53
DX: T84.54XA Infection and inflammatory reaction due to internal left knee prosthesis, initial encounter (principal); I10 Essential (primary) hypertension; E11.9 Type 2 diabetes mellitus without complications; N40.0 Benign prostatic hyperplasia without lower urinary tract symptoms; Z88.8 Allergy status to other drugs, medicaments and biological substances
CPT/HCPCS: 96365; J0696

== ENCOUNTER 2024-12-06 06:11 | Day surgery (SDC) | payer OTHER ==
[~2024-12-06 06:11] MED LIST changes: +CefTRIAXone Sodium 1,000 MG in NS 100 ML IV SCH
[2024-12-06 09:30] VITALS: BP 132/74
== END 2024-12-06 09:59 | disposition home or self-care (01) ==
LOC: ATC 06:11
DX: T84.54XA Infection and inflammatory reaction due to internal left knee prosthesis, initial encounter (principal); E11.9 Type 2 diabetes mellitus without complications; I10 Essential (primary) hypertension; M06.9 Rheumatoid arthritis, unspecified; Z79.84 Long term (current) use of oral hypoglycemic drugs; Z79.899 Other long term (current) drug therapy
CPT/HCPCS: 96365; J0696

== ENCOUNTER 2024-12-07 05:09 | Day surgery (SDC) | payer OTHER ==
[~2024-12-07 05:09] MED LIST changes: -CefTRIAXone Sodium 1,000 MG in NS 100 ML IV SCH
[2024-12-07] MEDS ORDERED: CefTRIAXone Sodium 1,000 MG in NS 100 ML IV SCH (06:00)
[2024-12-07 09:45] VITALS: BP 163/90
== END 2024-12-07 10:03 | disposition home or self-care (01) ==
LOC: ATC 05:09
DX: T84.54XA Infection and inflammatory reaction due to internal left knee prosthesis, initial encounter (principal); E11.9 Type 2 diabetes mellitus without complications; I10 Essential (primary) hypertension; M06.9 Rheumatoid arthritis, unspecified; N40.0 Benign prostatic hyperplasia without lower urinary tract symptoms; Z87.891 Personal history of nicotine dependence; Z88.1 Allergy status to other antibiotic agents; Z79.84 Long term (current) use of oral hypoglycemic drugs; Z79.1 Long term (current) use of non-steroidal anti-inflammatories (NSAID); Z79.899 Other long term (current) drug therapy
CPT/HCPCS: 96365; J0696

== ENCOUNTER 2024-12-08 02:50 | Day surgery (SDC) | payer OTHER ==
[2024-12-08] MEDS ORDERED: CefTRIAXone Sodium 1,000 MG in NS 100 ML IV SCH (06:00)
[2024-12-08 09:31] VITALS: BP 128/83
--- NOTE | 2024-12-13 13:37 | NUR ---
LAYLA COMPLETE AT [phone]
== END 2024-12-08 09:50 | disposition home or self-care (01) ==
LOC: ATC 02:50
DX: T84.54XA Infection and inflammatory reaction due to internal left knee prosthesis, initial encounter (principal); E11.9 Type 2 diabetes mellitus without complications; I10 Essential (primary) hypertension; M06.9 Rheumatoid arthritis, unspecified; N40.0 Benign prostatic hyperplasia without lower urinary tract symptoms; Z87.891 Personal history of nicotine dependence; Z88.1 Allergy status to other antibiotic agents; Z79.84 Long term (current) use of oral hypoglycemic drugs; Z79.899 Other long term (current) drug therapy
CPT/HCPCS: 96365; J0696

== ENCOUNTER 2024-12-09 06:16 | Day surgery (SDC) | payer OTHER ==
[2024-12-09] MEDS ORDERED: CefTRIAXone Sodium 1,000 MG in NS 100 ML IV SCH (07:00)
[2024-12-09 09:57] VITALS: BP 126/82
== END 2024-12-09 10:03 | disposition home or self-care (01) ==
LOC: ATC 06:16
DX: T84.54XA Infection and inflammatory reaction due to internal left knee prosthesis, initial encounter (principal); E11.9 Type 2 diabetes mellitus without complications; I10 Essential (primary) hypertension; M06.9 Rheumatoid arthritis, unspecified; N40.0 Benign prostatic hyperplasia without lower urinary tract symptoms; Z79.84 Long term (current) use of oral hypoglycemic drugs; Z79.899 Other long term (current) drug therapy; Z87.891 Personal history of nicotine dependence; Z88.1 Allergy status to other antibiotic agents
CPT/HCPCS: 96365; J0696

== ENCOUNTER 2024-12-11 02:53 | Day surgery (SDC) | payer OTHER ==
[~2024-12-11 02:53] MED LIST changes: +CefTRIAXone Sodium 1,000 MG in NS 100 ML IV SCH
[2024-12-11 09:29] VITALS: BP 132/80
== END 2024-12-11 09:49 | disposition home or self-care (01) ==
LOC: ATC 02:53
DX: T84.54XA Infection and inflammatory reaction due to internal left knee prosthesis, initial encounter (principal); E11.9 Type 2 diabetes mellitus without complications; I10 Essential (primary) hypertension; M06.9 Rheumatoid arthritis, unspecified; Z88.1 Allergy status to other antibiotic agents; Z79.84 Long term (current) use of oral hypoglycemic drugs; Z79.899 Other long term (current) drug therapy; Z87.891 Personal history of nicotine dependence
CPT/HCPCS: 96365; J0696

== ENCOUNTER 2024-12-12 09:23 | Day surgery (SDC) | payer OTHER ==
[2024-12-12 09:39] VITALS: BP 156/89
== END 2024-12-12 09:50 | disposition home or self-care (01) ==
LOC: ATC 09:23
DX: T84.54XA Infection and inflammatory reaction due to internal left knee prosthesis, initial encounter (principal); E11.9 Type 2 diabetes mellitus without complications; I10 Essential (primary) hypertension; M06.9 Rheumatoid arthritis, unspecified; N40.0 Benign prostatic hyperplasia without lower urinary tract symptoms; Z87.891 Personal history of nicotine dependence; Z88.1 Allergy status to other antibiotic agents; Z79.84 Long term (current) use of oral hypoglycemic drugs; Z79.899 Other long term (current) drug therapy
CPT/HCPCS: 96365; J0696

== ENCOUNTER 2024-12-13 05:26 | Day surgery (SDC) | payer OTHER ==
[~2024-12-13 05:26] MED LIST changes: -CefTRIAXone Sodium 1,000 MG in NS 100 ML IV SCH
[2024-12-13] MEDS ORDERED: CefTRIAXone Sodium 1,000 MG in NS 100 ML IV SCH (06:00)
[2024-12-13 09:40] VITALS: BP 145/84
== END 2024-12-13 10:07 | disposition home or self-care (01) ==
LOC: ATC 05:26
DX: T84.54XA Infection and inflammatory reaction due to internal left knee prosthesis, initial encounter (principal); E11.9 Type 2 diabetes mellitus without complications; I10 Essential (primary) hypertension; M06.9 Rheumatoid arthritis, unspecified; N40.0 Benign prostatic hyperplasia without lower urinary tract symptoms; Z87.891 Personal history of nicotine dependence; Z88.1 Allergy status to other antibiotic agents; Z79.84 Long term (current) use of oral hypoglycemic drugs; Z79.899 Other long term (current) drug therapy
CPT/HCPCS: 96365; J0696

== ENCOUNTER 2024-12-14 02:30 | Day surgery (SDC) | payer OTHER ==
[2024-12-14] MEDS ORDERED: CefTRIAXone Sodium 1,000 MG in NS 100 ML IV SCH (06:00)
[2024-12-14 09:35] VITALS: BP 131/88
== END 2024-12-14 09:58 | disposition home or self-care (01) ==
LOC: ATC 02:30
DX: T84.54XA Infection and inflammatory reaction due to internal left knee prosthesis, initial encounter (principal); E11.9 Type 2 diabetes mellitus without complications; I10 Essential (primary) hypertension; M06.9 Rheumatoid arthritis, unspecified; N40.0 Benign prostatic hyperplasia without lower urinary tract symptoms; Z79.84 Long term (current) use of oral hypoglycemic drugs; Z79.899 Other long term (current) drug therapy; Z87.891 Personal history of nicotine dependence; Z88.1 Allergy status to other antibiotic agents
CPT/HCPCS: 96365; J0696

== ENCOUNTER 2024-12-15 03:34 | Day surgery (SDC) | payer OTHER ==
[2024-12-15] MEDS ORDERED: CefTRIAXone Sodium 1,000 MG in NS 100 ML IV SCH (06:00)
[2024-12-15 09:25] VITALS: BP 126/71
== END 2024-12-15 09:51 | disposition home or self-care (01) ==
LOC: ATC 03:34
DX: T84.54XA Infection and inflammatory reaction due to internal left knee prosthesis, initial encounter (principal); I10 Essential (primary) hypertension; E11.9 Type 2 diabetes mellitus without complications; M06.9 Rheumatoid arthritis, unspecified; N40.0 Benign prostatic hyperplasia without lower urinary tract symptoms; Z79.84 Long term (current) use of oral hypoglycemic drugs; Z79.899 Other long term (current) drug therapy; Z87.891 Personal history of nicotine dependence
CPT/HCPCS: 96365; J0696

== ENCOUNTER 2024-12-16 06:10 | Day surgery (SDC) | payer OTHER ==
[~2024-12-16 06:10] MED LIST changes: +CefTRIAXone Sodium 1,000 MG in NS 100 ML IV SCH
[2024-12-16 09:25] VITALS: BP 103/86
== END 2024-12-16 09:49 | disposition home or self-care (01) ==
LOC: ATC 06:10
DX: T84.54XA Infection and inflammatory reaction due to internal left knee prosthesis, initial encounter (principal); I10 Essential (primary) hypertension; E11.9 Type 2 diabetes mellitus without complications; N40.0 Benign prostatic hyperplasia without lower urinary tract symptoms; M06.9 Rheumatoid arthritis, unspecified; Z88.8 Allergy status to other drugs, medicaments and biological substances; X58.XXXA Exposure to other specified factors, initial encounter
CPT/HCPCS: 96365; J0696

== ENCOUNTER 2024-12-17 06:45 | Day surgery (SDC) | payer OTHER ==
[2024-12-17 09:17] VITALS: BP 125/80
== END 2024-12-17 09:40 | disposition home or self-care (01) ==
LOC: ATC 06:45
DX: T84.54XA Infection and inflammatory reaction due to internal left knee prosthesis, initial encounter (principal); I10 Essential (primary) hypertension; E11.9 Type 2 diabetes mellitus without complications; Z87.891 Personal history of nicotine dependence; Z88.1 Allergy status to other antibiotic agents; Z79.84 Long term (current) use of oral hypoglycemic drugs; Z79.899 Other long term (current) drug therapy; Y79.2 Prosthetic and other implants, materials and accessory orthopedic devices associated with adverse incidents
CPT/HCPCS: 96365; J0696

== ENCOUNTER 2024-12-18 07:48 | Day surgery (SDC) | payer OTHER ==
[2024-12-18 09:16] VITALS: BP 111/73
== END 2024-12-18 09:43 | disposition home or self-care (01) ==
LOC: ATC 07:48
DX: T84.54XA Infection and inflammatory reaction due to internal left knee prosthesis, initial encounter (principal); I10 Essential (primary) hypertension; E11.9 Type 2 diabetes mellitus without complications; N40.0 Benign prostatic hyperplasia without lower urinary tract symptoms; M06.9 Rheumatoid arthritis, unspecified; Z87.891 Personal history of nicotine dependence; Z88.1 Allergy status to other antibiotic agents; Z79.84 Long term (current) use of oral hypoglycemic drugs; Z79.899 Other long term (current) drug therapy
CPT/HCPCS: 96365; J0696

== ENCOUNTER 2024-12-20 05:42 | Day surgery (SDC) | payer OTHER ==
[~2024-12-20 05:42] MED LIST changes: -CefTRIAXone Sodium 1,000 MG in NS 100 ML IV SCH
[2024-12-20] MEDS ORDERED: CefTRIAXone Sodium 1,000 MG in NS 100 ML IV SCH (06:00)
[2024-12-20 10:40] VITALS: BP 173/93
--- NOTE | 2024-12-22 13:41 | NUR ---
STOP TIME FOR ROCEPHIN ON 12/20/24 IS 1119
--- NOTE | 2025-01-18 14:58 | NUR ---
CORRECTION TO PREVIOUS CORRECTION, ROCEPHIN WAS ADMINISTERED 12/20/26 @ 1035.
== END 2024-12-20 11:15 | disposition home or self-care (01) ==
LOC: ATC 05:42
DX: T84.54XA Infection and inflammatory reaction due to internal left knee prosthesis, initial encounter (principal); I10 Essential (primary) hypertension; E11.9 Type 2 diabetes mellitus without complications; Z88.8 Allergy status to other drugs, medicaments and biological substances; Y83.8 Other surgical procedures as the cause of abnormal reaction of the patient, or of later complication, without mention of misadventure at the time of the procedure
CPT/HCPCS: 96365; J0696

== ENCOUNTER 2024-12-21 01:13 | Day surgery (SDC) | payer OTHER ==
[2024-12-21] MEDS ORDERED: CefTRIAXone Sodium 1,000 MG in NS 100 ML IV SCH (06:00)
[2024-12-21 09:42] VITALS: BP 136/108
== END 2024-12-21 10:08 | disposition home or self-care (01) ==
LOC: ATC 01:13
DX: T84.54XA Infection and inflammatory reaction due to internal left knee prosthesis, initial encounter (principal); Y79.2 Prosthetic and other implants, materials and accessory orthopedic devices associated with adverse incidents; I10 Essential (primary) hypertension; E11.9 Type 2 diabetes mellitus without complications; M06.9 Rheumatoid arthritis, unspecified; Z87.891 Personal history of nicotine dependence; Z88.1 Allergy status to other antibiotic agents; Z79.84 Long term (current) use of oral hypoglycemic drugs; Z79.899 Other long term (current) drug therapy
CPT/HCPCS: 96365; J0696

== ENCOUNTER 2024-12-22 03:31 | Day surgery (SDC) | payer OTHER ==
[2024-12-22] MEDS ORDERED: CefTRIAXone Sodium 1,000 MG in NS 100 ML IV SCH (06:00)
[2024-12-22 09:10] VITALS: BP 159/92
== END 2024-12-22 09:34 | disposition home or self-care (01) ==
LOC: ATC 03:31
DX: T84.54XA Infection and inflammatory reaction due to internal left knee prosthesis, initial encounter (principal); I10 Essential (primary) hypertension; E11.9 Type 2 diabetes mellitus without complications; N40.0 Benign prostatic hyperplasia without lower urinary tract symptoms; M06.9 Rheumatoid arthritis, unspecified; Z87.891 Personal history of nicotine dependence; Z79.84 Long term (current) use of oral hypoglycemic drugs; Z79.899 Other long term (current) drug therapy; Z88.1 Allergy status to other antibiotic agents
CPT/HCPCS: 96365; J0696

== ENCOUNTER 2024-12-23 03:05 | Day surgery (SDC) | payer OTHER ==
[~2024-12-23 03:05] MED LIST changes: +CefTRIAXone Sodium 1,000 MG in NS 100 ML IV SCH
[2024-12-23 09:10] VITALS: BP 123/83
== END 2024-12-23 09:36 | disposition home or self-care (01) ==
LOC: ATC 03:05
DX: T84.54XA Infection and inflammatory reaction due to internal left knee prosthesis, initial encounter (principal); E11.9 Type 2 diabetes mellitus without complications; I10 Essential (primary) hypertension; M06.9 Rheumatoid arthritis, unspecified
CPT/HCPCS: 96365; J0696

== ENCOUNTER 2024-12-24 02:39 | Day surgery (SDC) | payer OTHER ==
[~2024-12-24 02:39] MED LIST changes: -CefTRIAXone Sodium 1,000 MG in NS 100 ML IV SCH
[2024-12-24] MEDS ORDERED: CefTRIAXone Sodium 1,000 MG in NS 100 ML IV SCH (06:00)
[2024-12-24 09:09] VITALS: BP 106/71
== END 2024-12-24 09:24 | disposition home or self-care (01) ==
LOC: ATC 02:39
DX: T84.54XA Infection and inflammatory reaction due to internal left knee prosthesis, initial encounter (principal); E11.9 Type 2 diabetes mellitus without complications; I10 Essential (primary) hypertension; M06.9 Rheumatoid arthritis, unspecified; N40.0 Benign prostatic hyperplasia without lower urinary tract symptoms; Z87.891 Personal history of nicotine dependence; Z88.1 Allergy status to other antibiotic agents; Z79.84 Long term (current) use of oral hypoglycemic drugs; Z79.899 Other long term (current) drug therapy
CPT/HCPCS: 96365; J0696

== ENCOUNTER 2024-12-25 01:13 | Day surgery (SDC) | payer OTHER ==
[2024-12-25] MEDS ORDERED: CefTRIAXone Sodium 1,000 MG in NS 100 ML IV SCH (06:00)
[2024-12-25 09:18] VITALS: BP 136/86
== END 2024-12-25 09:41 | disposition home or self-care (01) ==
LOC: ATC 01:13
DX: T84.54XA Infection and inflammatory reaction due to internal left knee prosthesis, initial encounter (principal); Y79.2 Prosthetic and other implants, materials and accessory orthopedic devices associated with adverse incidents; I10 Essential (primary) hypertension; E11.9 Type 2 diabetes mellitus without complications; Z88.1 Allergy status to other antibiotic agents; Z79.84 Long term (current) use of oral hypoglycemic drugs; Z79.899 Other long term (current) drug therapy; Z87.891 Personal history of nicotine dependence
CPT/HCPCS: 96365; J0696

== ENCOUNTER 2024-12-26 09:08 | Day surgery (SDC) | payer OTHER ==
[~2024-12-26 09:08] MED LIST changes: +CefTRIAXone Sodium 1,000 MG in NS 100 ML IV SCH
[2024-12-26 10:00] VITALS: BP 155/81
== END 2024-12-26 10:29 | disposition home or self-care (01) ==
LOC: ATC 09:08
DX: T84.54XA Infection and inflammatory reaction due to internal left knee prosthesis, initial encounter (principal); I10 Essential (primary) hypertension; E11.9 Type 2 diabetes mellitus without complications; M06.9 Rheumatoid arthritis, unspecified; Z79.84 Long term (current) use of oral hypoglycemic drugs; Z79.899 Other long term (current) drug therapy
CPT/HCPCS: 96365; J0696

== ENCOUNTER 2025-01-01 01:27 | Day surgery (SDC) | payer OTHER ==
[~2025-01-01 01:27] MED LIST changes: -CefTRIAXone Sodium 1,000 MG in NS 100 ML IV SCH
[2025-01-01] MEDS ORDERED: CefTRIAXone Sodium 1,000 MG in NS 100 ML IV SCH (06:00)
[2025-01-01 09:25] VITALS: BP 140/87
== END 2025-01-01 09:42 | disposition home or self-care (01) ==
LOC: ATC 01:27
DX: A41.9 Sepsis, unspecified organism (principal); L03.116 Cellulitis of left lower limb; M06.9 Rheumatoid arthritis, unspecified; Z79.899 Other long term (current) drug therapy
CPT/HCPCS: 96365; J0696

== ENCOUNTER 2025-01-02 00:33 | Day surgery (SDC) | payer OTHER ==
[2025-01-02] MEDS ORDERED: CefTRIAXone Sodium 1,000 MG in NS 100 ML IV SCH (06:00)
--- NOTE | 2025-01-02 10:26 | NUR ---
IV CAME UNHOOKED AND PT FELT WETNESS ON JEANS, APPEARS THAT NOT MUCH ANTIBIOTIC RAN OUT
[2025-01-02 10:59] LABS: BASOPHILS ABSOLUTE AUTO 0.16 K/mm3 (0.00-0.23); BASOPHILS PERCENT AUTO 2 % (0-2); EOSINOPHILS ABSOLUTE AUTO 0.71 K/mm3 (0.00-0.68); EOSINOPHILS PERCENT AUTO 8 % (0-6); Hematocrit 40.5 % (37.0-53.0); IMMATURE GRAN ABSOLUTE AUTO 0.02 K/mm3 (0.00-0.10); IMMATURE GRAN PERCENT AUTO 0 % (0-1); LYMPHOCYTES ABSOLUTE AUTO 1.56 K/mm3 (0.84-5.20); LYMPHOCYTES PERCENT AUTO 19 % (21-46); MONOCYTES ABSOLUTE AUTO 0.74 K/mm3 (0.16-1.47); MONOCYTES PERCENT AUTO 9 % (4-13); Mean Corpuscular HGB 29.2 pg (26.0-34.0); Mean Corpuscular HGB Conc 32.1 g/dL (31.5-36.5); Mean Corpuscular Volume 91 fL (80-100); NEUTROPHILS ABSOLUTE AUTO 5.26 K/mm3 (1.96-9.15); NEUTROPHILS PERCENT AUTO 62 % (41-73); Platelet Count 238 K/mm3 (150-400); RDW Coefficient Variation 13.7 % (11.7-14.2); RDW Standard Deviation 46.3 fL (35.1-46.3); Red Blood Cell Count 4.45 M/mm3 (4.30-5.90); White Blood Cell Count 8.45 K/mm3 (4.00-11.30)
[2025-01-02 11:01] LABS: Mean Platelet Volume 13.5 fL (9.1-12.4)
== END 2025-01-02 09:51 | disposition home or self-care (01) ==
LOC: ATC 00:33
PROVIDERS: Orthopaedic Surgery
DX: A41.9 Sepsis, unspecified organism (principal); L03.116 Cellulitis of left lower limb; I10 Essential (primary) hypertension; E11.9 Type 2 diabetes mellitus without complications; M06.9 Rheumatoid arthritis, unspecified; Z88.1 Allergy status to other antibiotic agents; Z79.84 Long term (current) use of oral hypoglycemic drugs; Z79.899 Other long term (current) drug therapy
CPT/HCPCS: 85025; 86140; 96365; J0696

== ENCOUNTER 2025-01-03 00:07 | Day surgery (SDC) | payer OTHER ==
[2025-01-03] MEDS ORDERED: CefTRIAXone Sodium 1,000 MG in NS 100 ML IV SCH (06:00)
[2025-01-03 09:25] VITALS: BP 151/94
== END 2025-01-03 09:55 | disposition home or self-care (01) ==
LOC: ATC 00:07
DX: T84.54XA Infection and inflammatory reaction due to internal left knee prosthesis, initial encounter (principal); I10 Essential (primary) hypertension; E11.9 Type 2 diabetes mellitus without complications; N40.0 Benign prostatic hyperplasia without lower urinary tract symptoms; M06.9 Rheumatoid arthritis, unspecified; Z87.891 Personal history of nicotine dependence; Z79.84 Long term (current) use of oral hypoglycemic drugs; Z79.899 Other long term (current) drug therapy; Z88.1 Allergy status to other antibiotic agents
CPT/HCPCS: 96365; J0696

== ENCOUNTER 2025-01-04 02:28 | Day surgery (SDC) | payer OTHER ==
[2025-01-04] MEDS ORDERED: CefTRIAXone Sodium 1,000 MG in NS 100 ML IV SCH (06:00)
[2025-01-04 09:28] VITALS: BP 149/80
== END 2025-01-04 09:36 | disposition home or self-care (01) ==
LOC: ATC 02:28
DX: T84.54XA Infection and inflammatory reaction due to internal left knee prosthesis, initial encounter (principal); I10 Essential (primary) hypertension; E11.9 Type 2 diabetes mellitus without complications; M06.9 Rheumatoid arthritis, unspecified; Z79.84 Long term (current) use of oral hypoglycemic drugs; Z79.899 Other long term (current) drug therapy
CPT/HCPCS: 85651; 96365; J0696

== ENCOUNTER 2025-01-05 03:44 | Day surgery (SDC) | payer OTHER ==
[~2025-01-05 03:44] MED LIST changes: +CefTRIAXone Sodium 2,000 MG in NS 100 ML IV SCH
[2025-01-05] MEDS ORDERED: CefTRIAXone Sodium 1,000 MG in NS 100 ML IV SCH (06:55)
[2025-01-05 09:13] VITALS: BP 150/73
== END 2025-01-05 09:36 | disposition home or self-care (01) ==
LOC: ATC 03:44
DX: T84.54XA Infection and inflammatory reaction due to internal left knee prosthesis, initial encounter (principal); E11.9 Type 2 diabetes mellitus without complications; I10 Essential (primary) hypertension; M06.9 Rheumatoid arthritis, unspecified; N40.0 Benign prostatic hyperplasia without lower urinary tract symptoms; Z87.891 Personal history of nicotine dependence; Z79.84 Long term (current) use of oral hypoglycemic drugs; Z79.899 Other long term (current) drug therapy; Z88.1 Allergy status to other antibiotic agents
CPT/HCPCS: 96365; J0696

== ENCOUNTER 2025-01-06 10:05 | Day surgery (SDC) | payer OTHER ==
[~2025-01-06 10:05] MED LIST changes: +CefTRIAXone Sodium 1,000 MG in NS 100 ML IV SCH; -CefTRIAXone Sodium 2,000 MG in NS 100 ML IV SCH
[2025-01-06 10:20] VITALS: BP 154/82
== END 2025-01-06 10:45 | disposition home or self-care (01) ==
LOC: ATC 10:05
DX: T84.54XA Infection and inflammatory reaction due to internal left knee prosthesis, initial encounter (principal); E11.9 Type 2 diabetes mellitus without complications; I10 Essential (primary) hypertension; M06.9 Rheumatoid arthritis, unspecified; N40.0 Benign prostatic hyperplasia without lower urinary tract symptoms; Z87.891 Personal history of nicotine dependence; Z79.84 Long term (current) use of oral hypoglycemic drugs; Z79.899 Other long term (current) drug therapy; Z88.1 Allergy status to other antibiotic agents
CPT/HCPCS: 96365; J0696

== ENCOUNTER 2025-01-07 00:30 | Day surgery (SDC) | payer OTHER ==
[~2025-01-07 00:30] MED LIST changes: -CefTRIAXone Sodium 1,000 MG in NS 100 ML IV SCH
[2025-01-07] MEDS ORDERED: CefTRIAXone Sodium 1,000 MG in NS 100 ML IV SCH (06:00)
[2025-01-07 12:40] VITALS: BP 116/95
== END 2025-01-07 13:05 | disposition home or self-care (01) ==
LOC: ATC 00:30
DX: T84.54XA Infection and inflammatory reaction due to internal left knee prosthesis, initial encounter (principal); E11.9 Type 2 diabetes mellitus without complications; I10 Essential (primary) hypertension; M06.9 Rheumatoid arthritis, unspecified; N40.0 Benign prostatic hyperplasia without lower urinary tract symptoms; Z87.891 Personal history of nicotine dependence; Z79.84 Long term (current) use of oral hypoglycemic drugs; Z79.899 Other long term (current) drug therapy; Z88.1 Allergy status to other antibiotic agents
CPT/HCPCS: 96365; J0696

== ENCOUNTER 2025-01-08 02:21 | Day surgery (SDC) | payer OTHER ==
[2025-01-08] MEDS ORDERED: CefTRIAXone Sodium 1,000 MG in NS 100 ML IV SCH (06:00)
[2025-01-08 09:36] VITALS: BP 127/67
== END 2025-01-08 09:55 | disposition home or self-care (01) ==
LOC: ATC 02:21
DX: T84.54XA Infection and inflammatory reaction due to internal left knee prosthesis, initial encounter (principal); I10 Essential (primary) hypertension; E11.9 Type 2 diabetes mellitus without complications; N40.0 Benign prostatic hyperplasia without lower urinary tract symptoms; M06.9 Rheumatoid arthritis, unspecified; Z87.891 Personal history of nicotine dependence; Z88.1 Allergy status to other antibiotic agents; Z79.84 Long term (current) use of oral hypoglycemic drugs; Z79.899 Other long term (current) drug therapy
CPT/HCPCS: 96365; J0696

== ENCOUNTER 2025-01-09 00:17 | Day surgery (SDC) | payer OTHER ==
[2025-01-09] MEDS ORDERED: CefTRIAXone Sodium 1,000 MG in NS 100 ML IV SCH (06:00)
[2025-01-09 09:28] VITALS: BP 138/104
== END 2025-01-09 09:57 | disposition home or self-care (01) ==
LOC: ATC 00:17
DX: T84.54XA Infection and inflammatory reaction due to internal left knee prosthesis, initial encounter (principal); I10 Essential (primary) hypertension; E11.9 Type 2 diabetes mellitus without complications; M06.9 Rheumatoid arthritis, unspecified; Z79.84 Long term (current) use of oral hypoglycemic drugs; Z79.899 Other long term (current) drug therapy
CPT/HCPCS: 96365; J0696

== ENCOUNTER 2025-01-10 01:51 | Day surgery (SDC) | payer OTHER ==
[2025-01-10] MEDS ORDERED: CefTRIAXone Sodium 1,000 MG in NS 100 ML IV SCH (06:00)
[2025-01-10 09:13] VITALS: BP 155/74
== END 2025-01-10 09:40 | disposition home or self-care (01) ==
LOC: ATC 01:51
DX: T84.54XA Infection and inflammatory reaction due to internal left knee prosthesis, initial encounter (principal); E11.9 Type 2 diabetes mellitus without complications; I10 Essential (primary) hypertension; Z79.84 Long term (current) use of oral hypoglycemic drugs; Z79.899 Other long term (current) drug therapy; Z88.8 Allergy status to other drugs, medicaments and biological substances
CPT/HCPCS: 96365; J0696

== ENCOUNTER 2025-01-11 01:29 | Day surgery (SDC) | payer OTHER ==
[2025-01-11] MEDS ORDERED: CefTRIAXone Sodium 1,000 MG in NS 100 ML IV SCH (06:00)
[2025-01-11 09:07] VITALS: BP 164/92
== END 2025-01-11 09:52 | disposition home or self-care (01) ==
LOC: ATC 01:29
DX: L03.116 Cellulitis of left lower limb (principal); E11.9 Type 2 diabetes mellitus without complications; I10 Essential (primary) hypertension; M06.9 Rheumatoid arthritis, unspecified; Z88.8 Allergy status to other drugs, medicaments and biological substances; Z79.84 Long term (current) use of oral hypoglycemic drugs; Z79.899 Other long term (current) drug therapy
CPT/HCPCS: 96365; C1751; J0696

== ENCOUNTER 2025-01-12 03:13 | Day surgery (SDC) | payer OTHER ==
[2025-01-12] MEDS ORDERED: CefTRIAXone Sodium 1,000 MG in NS 100 ML IV SCH (06:00)
[2025-01-12 09:15] VITALS: BP 158/71
== END 2025-01-12 09:40 | disposition home or self-care (01) ==
LOC: ATC 03:13
DX: A41.9 Sepsis, unspecified organism (principal); L03.116 Cellulitis of left lower limb; I10 Essential (primary) hypertension; E11.9 Type 2 diabetes mellitus without complications; M06.9 Rheumatoid arthritis, unspecified; Z87.891 Personal history of nicotine dependence; Z88.1 Allergy status to other antibiotic agents; Z79.84 Long term (current) use of oral hypoglycemic drugs; Z79.899 Other long term (current) drug therapy
CPT/HCPCS: 96365; J0696

== ENCOUNTER 2025-01-13 03:02 | Day surgery (SDC) | payer OTHER ==
[2025-01-13] MEDS ORDERED: CefTRIAXone Sodium 1,000 MG in NS 100 ML IV SCH (06:00)
[2025-01-13 09:16] VITALS: BP 145/89
== END 2025-01-13 09:33 | disposition home or self-care (01) ==
LOC: ATC 03:02
DX: A41.9 Sepsis, unspecified organism (principal); L03.116 Cellulitis of left lower limb; M06.9 Rheumatoid arthritis, unspecified; I10 Essential (primary) hypertension; E11.9 Type 2 diabetes mellitus without complications; N40.0 Benign prostatic hyperplasia without lower urinary tract symptoms; Z87.891 Personal history of nicotine dependence; Z88.1 Allergy status to other antibiotic agents; Z79.84 Long term (current) use of oral hypoglycemic drugs; Z79.899 Other long term (current) drug therapy
CPT/HCPCS: 96365; J0696

== ENCOUNTER 2025-01-14 09:00 | Day surgery (SDC) | payer OTHER ==
[~2025-01-14 09:00] MED LIST changes: +CefTRIAXone Sodium 1,000 MG in NS 100 ML IV SCH
--- NOTE | 2025-01-14 09:43 | NUR ---
PT CONCERNED REGARDING CONTINUATION OF ABX THERAPY. PT SEE'S HIS SURGEON ON WEDNESDAY. PT PLANS TO ASK IF AN INFECTIOUS DISEASE DOCTOR IS FOLLOWING HIS CASE, SHOULD THEY INCREASE HIS ROCEPHIN FROM 1GRAM TO 2GRAMS AND OR SHOULD HE BE PUT ON A STRONGER ANTIBIOTIC TO TREAT THE INFECTION.
== END 2025-01-14 09:41 | disposition home or self-care (01) ==
LOC: ATC 09:00
DX: T84.54XA Infection and inflammatory reaction due to internal left knee prosthesis, initial encounter (principal); I10 Essential (primary) hypertension; E11.9 Type 2 diabetes mellitus without complications; N40.0 Benign prostatic hyperplasia without lower urinary tract symptoms; M06.9 Rheumatoid arthritis, unspecified; Z79.84 Long term (current) use of oral hypoglycemic drugs; Z79.899 Other long term (current) drug therapy
CPT/HCPCS: 96365; J0696

== ENCOUNTER 2025-01-15 02:13 | Day surgery (SDC) | payer OTHER ==
[~2025-01-15 02:13] MED LIST changes: -CefTRIAXone Sodium 1,000 MG in NS 100 ML IV SCH
[2025-01-15] MEDS ORDERED: CefTRIAXone Sodium 1,000 MG in NS 100 ML IV SCH (06:00)
[2025-01-15 09:25] VITALS: BP 120/82
== END 2025-01-15 09:55 | disposition home or self-care (01) ==
LOC: ATC 02:13
DX: T84.54XA Infection and inflammatory reaction due to internal left knee prosthesis, initial encounter (principal); E11.9 Type 2 diabetes mellitus without complications; I10 Essential (primary) hypertension; M06.9 Rheumatoid arthritis, unspecified; N40.0 Benign prostatic hyperplasia without lower urinary tract symptoms; Z87.891 Personal history of nicotine dependence; Z79.84 Long term (current) use of oral hypoglycemic drugs; Z79.899 Other long term (current) drug therapy; Z88.1 Allergy status to other antibiotic agents
CPT/HCPCS: 96365; J0696

== ENCOUNTER 2025-01-16 00:28 | Day surgery (SDC) | payer OTHER ==
[2025-01-16] MEDS ORDERED: CefTRIAXone Sodium 1,000 MG in NS 100 ML IV SCH (06:00)
[2025-01-16 09:38] VITALS: BP 110/72
[2025-01-16 09:55] LABS: BASOPHILS PERCENT AUTO 2 % (0-2); EOSINOPHILS ABSOLUTE AUTO 0.61 K/mm3 (0.00-0.68); EOSINOPHILS PERCENT AUTO 10 % (0-6); IMMATURE GRAN ABSOLUTE AUTO 0.02 K/mm3 (0.00-0.10); IMMATURE GRAN PERCENT AUTO 0 % (0-1); LYMPHOCYTES PERCENT AUTO 23 % (21-46); MONOCYTES ABSOLUTE AUTO 0.32 K/mm3 (0.16-1.47); MONOCYTES PERCENT AUTO 5 % (4-13); Mean Corpuscular HGB 29.3 pg (26.0-34.0); Mean Corpuscular HGB Conc 32.5 g/dL (31.5-36.5); Mean Corpuscular Volume 90 fL (80-100); Mean Platelet Volume 12.9 fL (9.1-12.4); NEUTROPHILS ABSOLUTE AUTO 3.72 K/mm3 (1.96-9.15); NEUTROPHILS PERCENT AUTO 60 % (41-73); Platelet Count 190 K/mm3 (150-400); RDW Coefficient Variation 13.7 % (11.7-14.2); RDW Standard Deviation 45.7 fL (35.1-46.3); Red Blood Cell Count 4.44 M/mm3 (4.30-5.90); White Blood Cell Count 6.17 K/mm3 (4.00-11.30)
== END 2025-01-16 09:43 | disposition home or self-care (01) ==
LOC: ATC 00:28
PROVIDERS: Orthopaedic Surgery
DX: T84.54XA Infection and inflammatory reaction due to internal left knee prosthesis, initial encounter (principal); I10 Essential (primary) hypertension; I11.9 Hypertensive heart disease without heart failure; Z88.1 Allergy status to other antibiotic agents; Z87.891 Personal history of nicotine dependence; Z79.84 Long term (current) use of oral hypoglycemic drugs; Z79.899 Other long term (current) drug therapy
CPT/HCPCS: 85025; 85651; 86140; 96365; J0696

== ENCOUNTER 2025-01-17 01:11 | Day surgery (SDC) | payer OTHER ==
[2025-01-17] MEDS ORDERED: CefTRIAXone Sodium 1,000 MG in NS 100 ML IV SCH (06:00)
[2025-01-17 09:22] VITALS: BP 148/79
== END 2025-01-17 10:04 | disposition home or self-care (01) ==
LOC: ATC 01:11
DX: T84.54XA Infection and inflammatory reaction due to internal left knee prosthesis, initial encounter (principal); E11.9 Type 2 diabetes mellitus without complications; I10 Essential (primary) hypertension; M06.9 Rheumatoid arthritis, unspecified; N40.0 Benign prostatic hyperplasia without lower urinary tract symptoms; Z87.891 Personal history of nicotine dependence; Z79.84 Long term (current) use of oral hypoglycemic drugs; Z79.899 Other long term (current) drug therapy; Z88.1 Allergy status to other antibiotic agents
CPT/HCPCS: 96365; J0696

== ENCOUNTER 2025-01-18 02:07 | Day surgery (SDC) | payer OTHER ==
[2025-01-18] MEDS ORDERED: CefTRIAXone Sodium 1,000 MG in NS 100 ML IV SCH (06:00)
[2025-01-18 09:07] VITALS: BP 161/82
== END 2025-01-18 09:30 | disposition home or self-care (01) ==
LOC: ATC 02:07
DX: T84.54XA Infection and inflammatory reaction due to internal left knee prosthesis, initial encounter (principal); I10 Essential (primary) hypertension; E11.9 Type 2 diabetes mellitus without complications; N40.0 Benign prostatic hyperplasia without lower urinary tract symptoms; M06.9 Rheumatoid arthritis, unspecified; Z88.8 Allergy status to other drugs, medicaments and biological substances; Z79.84 Long term (current) use of oral hypoglycemic drugs
CPT/HCPCS: 96365; J0696

== ENCOUNTER 2025-01-19 04:48 | Day surgery (SDC) | payer OTHER ==
[2025-01-19] MEDS ORDERED: CefTRIAXone Sodium 1,000 MG in NS 100 ML IV SCH (06:00)
[2025-01-19 09:21] VITALS: BP 150/84
== END 2025-01-19 09:50 | disposition home or self-care (01) ==
LOC: ATC 04:48
DX: T84.54XA Infection and inflammatory reaction due to internal left knee prosthesis, initial encounter (principal); E11.9 Type 2 diabetes mellitus without complications; I10 Essential (primary) hypertension; Z79.84 Long term (current) use of oral hypoglycemic drugs; Z79.899 Other long term (current) drug therapy
CPT/HCPCS: 96365; J0696

== ENCOUNTER 2025-01-20 03:27 | Day surgery (SDC) | payer OTHER ==
[2025-01-20] MEDS ORDERED: CefTRIAXone Sodium 1,000 MG in NS 100 ML IV SCH (06:00)
[2025-01-20 09:15] VITALS: BP 134/70
== END 2025-01-20 09:34 | disposition home or self-care (01) ==
LOC: ATC 03:27
DX: T84.54XA Infection and inflammatory reaction due to internal left knee prosthesis, initial encounter (principal); E11.9 Type 2 diabetes mellitus without complications; I10 Essential (primary) hypertension; M06.9 Rheumatoid arthritis, unspecified; N40.0 Benign prostatic hyperplasia without lower urinary tract symptoms; Z87.891 Personal history of nicotine dependence; Z79.84 Long term (current) use of oral hypoglycemic drugs; Z79.899 Other long term (current) drug therapy; Z88.1 Allergy status to other antibiotic agents
CPT/HCPCS: 96365; J0696

== ENCOUNTER 2025-01-21 01:51 | Day surgery (SDC) | payer OTHER ==
[2025-01-21] MEDS ORDERED: CefTRIAXone Sodium 1,000 MG in NS 100 ML IV SCH (06:00)
[2025-01-21 09:21] VITALS: BP 127/115
== END 2025-01-21 09:44 | disposition home or self-care (01) ==
LOC: ATC 01:51
DX: T84.54XA Infection and inflammatory reaction due to internal left knee prosthesis, initial encounter (principal); E11.9 Type 2 diabetes mellitus without complications; I10 Essential (primary) hypertension; M06.9 Rheumatoid arthritis, unspecified; N40.0 Benign prostatic hyperplasia without lower urinary tract symptoms; Z79.84 Long term (current) use of oral hypoglycemic drugs; Z79.899 Other long term (current) drug therapy; Z88.1 Allergy status to other antibiotic agents; Z87.891 Personal history of nicotine dependence
CPT/HCPCS: 96365; J0696

== ENCOUNTER 2025-01-22 02:24 | Day surgery (SDC) | payer OTHER ==
[2025-01-22] MEDS ORDERED: CefTRIAXone Sodium 1,000 MG in NS 100 ML IV SCH (09:00)
[2025-01-22 09:19] VITALS: BP 132/86
== END 2025-01-22 09:45 | disposition home or self-care (01) ==
LOC: ATC 02:24
DX: T84.54XA Infection and inflammatory reaction due to internal left knee prosthesis, initial encounter (principal); I10 Essential (primary) hypertension; E11.9 Type 2 diabetes mellitus without complications; M06.9 Rheumatoid arthritis, unspecified; Z88.1 Allergy status to other antibiotic agents; Z79.84 Long term (current) use of oral hypoglycemic drugs; Z79.899 Other long term (current) drug therapy
CPT/HCPCS: 96365; J0696

== ENCOUNTER 2025-01-23 03:24 | Day surgery (SDC) | payer OTHER ==
[2025-01-23] MEDS ORDERED: CefTRIAXone Sodium 1,000 MG in NS 100 ML IV SCH (06:00)
[2025-01-23 09:20] VITALS: BP 144/80
== END 2025-01-23 09:41 | disposition home or self-care (01) ==
LOC: ATC 03:24
DX: T84.54XA Infection and inflammatory reaction due to internal left knee prosthesis, initial encounter (principal); I10 Essential (primary) hypertension; E11.9 Type 2 diabetes mellitus without complications; M06.9 Rheumatoid arthritis, unspecified; Z88.1 Allergy status to other antibiotic agents; Z79.84 Long term (current) use of oral hypoglycemic drugs; Z79.899 Other long term (current) drug therapy
CPT/HCPCS: 96365; J0696

== ENCOUNTER 2025-01-24 02:25 | Day surgery (SDC) | payer OTHER ==
[~2025-01-24 02:25] MED LIST changes: +CefTRIAXone Sodium 1,000 MG in NS 100 ML IV SCH
[2025-01-24 09:28] VITALS: BP 148/90
== END 2025-01-24 09:55 | disposition home or self-care (01) ==
LOC: ATC 02:25
DX: T84.54XA Infection and inflammatory reaction due to internal left knee prosthesis, initial encounter (principal); I10 Essential (primary) hypertension; E11.9 Type 2 diabetes mellitus without complications; M06.9 Rheumatoid arthritis, unspecified; Z87.891 Personal history of nicotine dependence; Z88.1 Allergy status to other antibiotic agents; Z79.84 Long term (current) use of oral hypoglycemic drugs; Z79.899 Other long term (current) drug therapy
CPT/HCPCS: 96365; J0696

== ENCOUNTER 2025-01-25 03:48 | Day surgery (SDC) | payer OTHER ==
[~2025-01-25 03:48] MED LIST changes: -CefTRIAXone Sodium 1,000 MG in NS 100 ML IV SCH
[2025-01-25] MEDS ORDERED: CefTRIAXone Sodium 1,000 MG in NS 100 ML IV SCH (06:00)
[2025-01-25 09:22] VITALS: BP 130/86
== END 2025-01-25 10:00 | disposition home or self-care (01) ==
LOC: ATC 03:48
DX: T84.54XA Infection and inflammatory reaction due to internal left knee prosthesis, initial encounter (principal); E11.9 Type 2 diabetes mellitus without complications; I10 Essential (primary) hypertension; M06.9 Rheumatoid arthritis, unspecified; N40.0 Benign prostatic hyperplasia without lower urinary tract symptoms; Z87.891 Personal history of nicotine dependence; Z79.84 Long term (current) use of oral hypoglycemic drugs; Z79.899 Other long term (current) drug therapy; Z88.1 Allergy status to other antibiotic agents
CPT/HCPCS: 96365; J0696

== ENCOUNTER 2025-01-26 04:44 | Day surgery (SDC) | payer OTHER ==
[2025-01-26] MEDS ORDERED: CefTRIAXone Sodium 1,000 MG in NS 100 ML IV SCH (06:00)
[2025-01-26 09:22] VITALS: BP 144/85
== END 2025-01-26 09:46 | disposition home or self-care (01) ==
LOC: ATC 04:44
DX: T84.54XA Infection and inflammatory reaction due to internal left knee prosthesis, initial encounter (principal); E11.9 Type 2 diabetes mellitus without complications; I10 Essential (primary) hypertension
CPT/HCPCS: 96365; J0696

== ENCOUNTER 2025-01-27 04:49 | Day surgery (SDC) | payer OTHER ==
[2025-01-27] MEDS ORDERED: CefTRIAXone Sodium 1,000 MG in NS 100 ML IV SCH (06:00)
[2025-01-27 09:21] VITALS: BP 145/89
== END 2025-01-27 09:45 | disposition home or self-care (01) ==
LOC: ATC 04:49
DX: T84.54XA Infection and inflammatory reaction due to internal left knee prosthesis, initial encounter (principal); E11.9 Type 2 diabetes mellitus without complications; I10 Essential (primary) hypertension; M06.9 Rheumatoid arthritis, unspecified; N40.0 Benign prostatic hyperplasia without lower urinary tract symptoms; Z87.891 Personal history of nicotine dependence; Z79.84 Long term (current) use of oral hypoglycemic drugs; Z79.899 Other long term (current) drug therapy; Z88.1 Allergy status to other antibiotic agents
CPT/HCPCS: 96365; J0696

== ENCOUNTER 2025-01-28 03:55 | Day surgery (SDC) | payer OTHER ==
[2025-01-28] MEDS ORDERED: CefTRIAXone Sodium 1,000 MG in NS 100 ML IV SCH (06:00)
[2025-01-28 09:31] VITALS: BP 154/93
== END 2025-01-28 09:48 | disposition home or self-care (01) ==
LOC: ATC 03:55
DX: A41.9 Sepsis, unspecified organism (principal); L03.116 Cellulitis of left lower limb; I10 Essential (primary) hypertension; E11.9 Type 2 diabetes mellitus without complications; M06.9 Rheumatoid arthritis, unspecified; Z88.1 Allergy status to other antibiotic agents; Z79.84 Long term (current) use of oral hypoglycemic drugs; Z79.899 Other long term (current) drug therapy
CPT/HCPCS: 96365; J0696

== ENCOUNTER 2025-01-29 02:10 | Day surgery (SDC) | payer OTHER ==
[2025-01-29] MEDS ORDERED: CefTRIAXone Sodium 1,000 MG in NS 100 ML IV SCH (06:00)
[2025-01-29 09:33] VITALS: BP 135/101
== END 2025-01-29 09:54 | disposition home or self-care (01) ==
LOC: ATC 02:10
DX: T84.54XA Infection and inflammatory reaction due to internal left knee prosthesis, initial encounter (principal); E11.9 Type 2 diabetes mellitus without complications; I10 Essential (primary) hypertension; M06.9 Rheumatoid arthritis, unspecified; N40.0 Benign prostatic hyperplasia without lower urinary tract symptoms; Z79.84 Long term (current) use of oral hypoglycemic drugs; Z79.899 Other long term (current) drug therapy; Z87.891 Personal history of nicotine dependence
CPT/HCPCS: 96365; J0696

== ENCOUNTER 2025-01-30 00:27 | Day surgery (SDC) | payer OTHER ==
[2025-01-30] MEDS ORDERED: CefTRIAXone Sodium 1,000 MG in NS 100 ML IV SCH (06:00)
[2025-01-30 09:40] VITALS: BP 111/68
[2025-01-30 10:00] LABS: BASOPHILS ABSOLUTE AUTO 0.11 K/mm3 (0.00-0.23); BASOPHILS PERCENT AUTO 2 % (0-2); EOSINOPHILS ABSOLUTE AUTO 0.42 K/mm3 (0.00-0.68); EOSINOPHILS PERCENT AUTO 7 % (0-6); Hematocrit 39.9 % (37.0-53.0); Hemoglobin 13.2 g/dL (13.5-17.5); IMMATURE GRAN ABSOLUTE AUTO 0.02 K/mm3 (0.00-0.10); IMMATURE GRAN PERCENT AUTO 0 % (0-1); LYMPHOCYTES ABSOLUTE AUTO 1.24 K/mm3 (0.84-5.20); LYMPHOCYTES PERCENT AUTO 20 % (21-46); MONOCYTES ABSOLUTE AUTO 0.64 K/mm3 (0.16-1.47); MONOCYTES PERCENT AUTO 10 % (4-13); Mean Corpuscular HGB 29.3 pg (26.0-34.0); Mean Corpuscular HGB Conc 33.1 g/dL (31.5-36.5); Mean Corpuscular Volume 89 fL (80-100); Mean Platelet Volume 12.9 fL (9.1-12.4); NEUTROPHILS ABSOLUTE AUTO 3.86 K/mm3 (1.96-9.15); NEUTROPHILS PERCENT AUTO 61 % (41-73); Platelet Count 212 K/mm3 (150-400); RDW Coefficient Variation 13.9 % (11.7-14.2); RDW Standard Deviation 45.3 fL (35.1-46.3); White Blood Cell Count 6.29 K/mm3 (4.00-11.30)
[2025-01-30 10:21] LABS: PSA, %Free 24.6 %; PSA, Free 0.124 ng/mL; Prostate Specific Antigen 0.504 ng/mL (0.000-4.000)
== END 2025-01-30 09:57 | disposition home or self-care (01) ==
LOC: ATC 00:27
PROVIDERS: Orthopaedic Surgery
DX: T84.54XA Infection and inflammatory reaction due to internal left knee prosthesis, initial encounter (principal); E11.9 Type 2 diabetes mellitus without complications; I10 Essential (primary) hypertension; M06.9 Rheumatoid arthritis, unspecified; Z88.8 Allergy status to other drugs, medicaments and biological substances; Z79.84 Long term (current) use of oral hypoglycemic drugs; Z79.899 Other long term (current) drug therapy; N40.1 Benign prostatic hyperplasia with lower urinary tract symptoms
CPT/HCPCS: 84153; 84154; 85025; 85651; 86140; 96365; J0696

== ENCOUNTER 2025-01-31 02:01 | Day surgery (SDC) | payer OTHER ==
[2025-01-31] MEDS ORDERED: CefTRIAXone Sodium 1,000 MG in NS 100 ML IV SCH (06:00)
[2025-01-31 09:51] VITALS: BP 147/83
== END 2025-01-31 10:10 | disposition home or self-care (01) ==
LOC: ATC 02:01
DX: T84.54XA Infection and inflammatory reaction due to internal left knee prosthesis, initial encounter (principal); N40.0 Benign prostatic hyperplasia without lower urinary tract symptoms; M06.9 Rheumatoid arthritis, unspecified; I10 Essential (primary) hypertension; E11.9 Type 2 diabetes mellitus without complications
CPT/HCPCS: 96365; J0696

== ENCOUNTER 2025-02-01 01:09 | Day surgery (SDC) | payer OTHER ==
[2025-02-01] MEDS ORDERED: CefTRIAXone Sodium 1,000 MG in NS 100 ML IV SCH (06:00)
[2025-02-01 09:12] VITALS: BP 150/82
== END 2025-02-01 09:37 | disposition home or self-care (01) ==
LOC: ATC 01:09
DX: T84.54XA Infection and inflammatory reaction due to internal left knee prosthesis, initial encounter (principal); I10 Essential (primary) hypertension; E11.9 Type 2 diabetes mellitus without complications; M06.9 Rheumatoid arthritis, unspecified; Z79.899 Other long term (current) drug therapy
CPT/HCPCS: 96365; J0696

== ENCOUNTER 2025-02-02 03:45 | Day surgery (SDC) | payer OTHER ==
[2025-02-02] MEDS ORDERED: CefTRIAXone Sodium 1,000 MG in NS 100 ML IV SCH (06:00)
[2025-02-02 09:12] VITALS: BP 152/90
== END 2025-02-02 09:39 | disposition home or self-care (01) ==
LOC: ATC 03:45
DX: T84.54XA Infection and inflammatory reaction due to internal left knee prosthesis, initial encounter (principal); I10 Essential (primary) hypertension; E11.9 Type 2 diabetes mellitus without complications; N40.0 Benign prostatic hyperplasia without lower urinary tract symptoms; Z88.8 Allergy status to other drugs, medicaments and biological substances; Z79.84 Long term (current) use of oral hypoglycemic drugs
CPT/HCPCS: 96365; J0696

== ENCOUNTER 2025-02-03 08:54 | Day surgery (SDC) | payer OTHER ==
[~2025-02-03 08:54] MED LIST changes: +CefTRIAXone Sodium 1,000 MG in NS 100 ML IV SCH
[2025-02-03 09:12] VITALS: BP 129/72
== END 2025-02-03 09:33 | disposition home or self-care (01) ==
LOC: ATC 08:54
DX: A41.9 Sepsis, unspecified organism (principal); L03.116 Cellulitis of left lower limb; I10 Essential (primary) hypertension; E11.9 Type 2 diabetes mellitus without complications; N40.0 Benign prostatic hyperplasia without lower urinary tract symptoms; M06.9 Rheumatoid arthritis, unspecified; Z88.1 Allergy status to other antibiotic agents; Z79.84 Long term (current) use of oral hypoglycemic drugs; Z79.899 Other long term (current) drug therapy
CPT/HCPCS: 96365; J0696

== ENCOUNTER 2025-02-04 09:17 | Day surgery (SDC) | payer OTHER ==
[2025-02-04 09:26] VITALS: BP 139/87
== END 2025-02-04 09:53 | disposition home or self-care (01) ==
LOC: ATC 09:17
DX: A41.9 Sepsis, unspecified organism (principal); L03.116 Cellulitis of left lower limb; I10 Essential (primary) hypertension; E11.9 Type 2 diabetes mellitus without complications; E78.5 Hyperlipidemia, unspecified; N40.0 Benign prostatic hyperplasia without lower urinary tract symptoms; M06.9 Rheumatoid arthritis, unspecified; Z88.1 Allergy status to other antibiotic agents; Z79.84 Long term (current) use of oral hypoglycemic drugs; Z79.899 Other long term (current) drug therapy
CPT/HCPCS: 96365; J0696

== ENCOUNTER 2025-02-05 02:54 | Day surgery (SDC) | payer OTHER ==
[2025-02-05 09:16] VITALS: BP 160/98
== END 2025-02-05 09:41 | disposition home or self-care (01) ==
LOC: ATC 02:54
DX: A41.9 Sepsis, unspecified organism (principal); L03.116 Cellulitis of left lower limb; I10 Essential (primary) hypertension; E11.9 Type 2 diabetes mellitus without complications; M06.9 Rheumatoid arthritis, unspecified; Z88.1 Allergy status to other antibiotic agents; Z79.84 Long term (current) use of oral hypoglycemic drugs; Z79.899 Other long term (current) drug therapy
CPT/HCPCS: 96365; J0696

== ENCOUNTER 2025-02-06 03:06 | Day surgery (SDC) | payer OTHER ==
[~2025-02-06 03:06] MED LIST changes: -CefTRIAXone Sodium 1,000 MG in NS 100 ML IV SCH
[2025-02-06] MEDS ORDERED: CefTRIAXone Sodium 1,000 MG in NS 100 ML IV SCH (06:00)
[2025-02-06 09:09] VITALS: BP 119/78
[2025-02-06 09:53] LABS: Hematocrit 39.4 % (37.0-53.0); Hemoglobin 13.2 g/dL (13.5-17.5); Mean Corpuscular HGB 29.7 pg (26.0-34.0); Mean Corpuscular HGB Conc 33.5 g/dL (31.5-36.5); Mean Corpuscular Volume 89 fL (80-100); Mean Platelet Volume 12.8 fL (9.1-12.4); Platelet Count 180 K/mm3 (150-400); RDW Coefficient Variation 14.2 % (11.7-14.2); RDW Standard Deviation 45.4 fL (35.1-46.3); Red Blood Cell Count 4.45 M/mm3 (4.30-5.90)
[2025-02-06 09:54] LABS: EOSINOPHILS ABSOLUTE AUTO 0.33 K/mm3 (0.00-0.68); EOSINOPHILS PERCENT AUTO 6 % (0-6); IMMATURE GRAN PERCENT AUTO 0 % (0-1); LYMPHOCYTES PERCENT AUTO 23 % (21-46); MONOCYTES PERCENT AUTO 10 % (4-13); NEUTROPHILS PERCENT AUTO 59 % (41-73)
[2025-02-06 10:07] LABS: BASOPHILS ABSOLUTE AUTO 0.08 K/mm3 (0.00-0.23); BASOPHILS PERCENT AUTO 1 % (0-2); IMMATURE GRAN ABSOLUTE AUTO 0.01 K/mm3 (0.00-0.10); MONOCYTES ABSOLUTE AUTO 0.59 K/mm3 (0.16-1.47); NEUTROPHILS ABSOLUTE AUTO 3.34 K/mm3 (1.96-9.15)
== END 2025-02-06 09:35 | disposition home or self-care (01) ==
LOC: ATC 03:06
PROVIDERS: Orthopaedic Surgery
DX: T84.54XA Infection and inflammatory reaction due to internal left knee prosthesis, initial encounter (principal); E11.9 Type 2 diabetes mellitus without complications; I10 Essential (primary) hypertension; M06.9 Rheumatoid arthritis, unspecified; N40.0 Benign prostatic hyperplasia without lower urinary tract symptoms; Z79.84 Long term (current) use of oral hypoglycemic drugs; Z79.899 Other long term (current) drug therapy; Z88.1 Allergy status to other antibiotic agents; Z87.891 Personal history of nicotine dependence
CPT/HCPCS: 85025; 85651; 86140; 96365; J0696

== ENCOUNTER 2025-02-07 04:53 | Day surgery (SDC) | payer OTHER ==
[2025-02-07] MEDS ORDERED: CefTRIAXone Sodium 1,000 MG in NS 100 ML IV SCH (06:00)
[2025-02-07 09:15] VITALS: BP 137/91
== END 2025-02-07 09:44 | disposition home or self-care (01) ==
LOC: ATC 04:53
DX: T84.54XA Infection and inflammatory reaction due to internal left knee prosthesis, initial encounter (principal); E11.9 Type 2 diabetes mellitus without complications; N40.0 Benign prostatic hyperplasia without lower urinary tract symptoms; I10 Essential (primary) hypertension; M06.9 Rheumatoid arthritis, unspecified; Z87.891 Personal history of nicotine dependence; Z79.84 Long term (current) use of oral hypoglycemic drugs; Z79.899 Other long term (current) drug therapy; Z88.1 Allergy status to other antibiotic agents
CPT/HCPCS: 96365; J0696